=== PATIENT | male | born 1970 | race Caucasian/White ===

== ENCOUNTER 2018-01-15 06:03 | Inpatient (IN) | payer BC ==
[2018-01-15] MEDS ORDERED: KETOROLAC 30 MG/ML 1 ML VIAL IVP STA (06:13)
[2018-01-15] MEDS ORDERED: SODIUM CHLORIDE 0.9% 500 ML IV STA (06:13)
--- NOTE | 2018-01-15 06:19 | ED ---
General Adult HPI - General Source: patient, RN notes reviewed Mode of arrival: wheelchair Limitations: no limitations <Oliverio Hernandez - Last Filed: 01/15/18 06:53> <Oliverio Pulliam - Last Filed: 01/15/18 09:22> - General Chief complaint: Abdominal Pain Stated complaint: Abdominal Pain Time Seen by Provider: 01/15/18 06:05 - History of Present Illness Initial comments: This is a 47-year-old male who presents emergency Department complaining of right upper quadrant pain starting at 10:00 last night and having intermittent episodes of greater pain but never completely going away in between those episodes. Patient states he has not had this before. Patient denies any abdominal surgeries. Patient states she did not take any medication at this time. Patient denies any medical problems. Patient denies any chest pain difficulty breathing shortness of breath per patient denies any recent fever or cough. Patient denies any dysuria hematuria urinary urgency. (Oliverio Hernandez) - Related Data Allergies Allergy/AdvReac Type Severity Reaction Status Date / Time lorazepam [From Ativan] AdvReac Swelling Verified 01/15/18 06:14 prochlorperazine AdvReac Swelling Verified 01/15/18 06:14 [From Compazine] Review of Systems ROS Other: All systems not noted in ROS Statement are negative. <Oliverio Hernandez - Last Filed: 01/15/18 06:53> ROS Other: All systems not noted in ROS Statement are negative. <Oliverio Pulliam - Last Filed: 01/15/18 09:22> ROS Statement: Those systems with pertinent positive or pertinent negative responses have been documented in the HPI. Past Medical History Past Medical History: GERD/Reflux Additional Past Medical History / Comment(s): nerve damage of the neck. History of Any Multi-Drug Resistant Organisms: None Reported Past Surgical History: No Surgical Hx Reported Past Psychological History: No Psychological Hx Reported Smoking Status: Never smoker Past Alcohol Use History: Occasional Past Drug Use History: None Reported <Oliverio Hernandez - Last Filed: 01/15/18 06:53> General Exam Limitations: no limitations <Oliverio Hernandez - Last Filed: 01/15/18 06:53> General appearance: alert, in no apparent distress Head exam: Present: atraumatic, normocephalic, normal inspection Eye exam: Present: normal appearance, PERRL, EOMI. Absent: scleral icterus, conjunctival injection, periorbital swelling ENT exam: Present: normal exam, mucous membranes moist Neck exam: Present: normal inspection. Absent: tenderness, meningismus, lymphadenopathy Respiratory exam: Present: normal lung sounds bilaterally. Absent: respiratory distress, wheezes, rales, rhonchi, stridor Cardiovascular Exam: Present: regular rate, normal rhythm, normal heart sounds. Absent: systolic murmur, diastolic murmur, rubs, gallop, clicks GI/Abdominal exam: Present: soft, normal bowel sounds. Absent: distended, tenderness, guarding, rebound, rigid Extremities exam: Present: normal inspection, full ROM, normal capillary refill. Absent: tenderness, pedal edema, joint swelling, calf tenderness Back exam: Present: normal inspection Neurological exam: Present: alert, oriented X3, CN II-XII intact Psychiatric exam: Present: normal affect, normal mood Skin exam: Present: warm, dry, intact, normal color. Absent: rash <Oliverio Pulliam - Last Filed: 01/15/18 09:22> - General Exam Comments Initial Comments: GENERAL: Patient is well-developed and well-nourished. Patient is nontoxic and well- hydrated and is in moderate distress. ENT: Neck is soft and supple. No significant lymphadenopathy is noted. Oropharynx is clear. Moist mucous membranes. Neck has full range of motion without eliciting any pain. EYES: The sclera were anicteric and conjunctiva were pink and moist. Extraocular movements were intact and pupils were equal round and reactive to light. Eyelids were unremarkable. PULMONARY: Unlabored respirations. Good breath sounds bilaterally. No audible rales rhonchi or wheezing was noted. CARDIOVASCULAR: There is a regular rate and rhythm without any murmurs gallops or rubs. ABDOMEN: Patient has significant right upper quadrant tenderness. SKIN: Skin is clear with no lesions or rashes and otherwise unremarkable. NEUROLOGIC: Patient is alert and oriented x3. Cranial nerves II through XII are grossly intact. Motor and sensory are also intact. Normal speech, volume and content. Symmetrical smile. MUSCULOSKELETAL: Normal extremities with adequate strength and full range of motion. LYMPHATICS: No significant lymphadenopathy is noted PSYCHIATRIC: Normal psychiatric evaluation. (Oliverio Hernandez) Course <Oliverio Hernandez - Last Filed: 01/15/18 06:53> <Oliverio Pulliam - Last Filed: 01/15/18 09:22> Vital Signs 01/15/18 01/15/18 06:05 07:52 Temperature 97.2 F L Pulse Rate 92 81 Respiratory 16 16 Rate Blood Pressure 147/82 140/76 O2 Sat by Pulse 99 98 Oximetry - Reevaluation(s) Reevaluation #1: 01/15/18 09:22 Patient is improved pain control at this time (Oliverio Pulliam) Medical Decision Making - Lab Data Result diagrams: 01/15/18 06:23 01/15/18 06:23 <Oliverio Hernandez - Last Filed: 01/15/18 06:53> - Lab Data Result diagrams: 01/15/18 06:23 01/15/18 06:23 - Radiology Data Radiology results: report reviewed (Ultrasound positive for gallbladder sludge sonographic Washburn's), image reviewed <Oliverio Pulliam - Last Filed: 01/15/18 09:22> - Medical Decision Making EKG shows normal sinus rhythm at 75 bpm UT interval is on a 46 QRS is 80 QT interval 370 QTC is 422. Patient's EKG shows no ST segment elevation or depression or T wave abnormalities are noted. Dr. Pulliam will be taking over the care of this patient at 7 AM (Oliverio Hernandez) 47 male the ER for evaluation of right upper quadrant abdominal pain, severe, positive Washburn's, ultrasound positive for sludge in the gallbladder, likely cholecystitis (Oliverio Pulliam) - Lab Data Lab Results 01/15/18 01/15/18 01/15/18 Range/Units 06:23 06:23 06:23 WBC 8.2 (3.8-10.6) k/uL RBC 5.35 (4.30-5.90) m/uL Hgb 16.1 (13.0-17.5) gm/dL Hct 44.9 (39.0-53.0) % MCV 84.0 (80.0-100.0) fL MCH 30.0 (25.0-35.0) pg MCHC 35.8 (31.0-37.0) g/dL RDW 12.9 (11.5-15.5) % Plt Count 267 (150-450) k/uL Neutrophils % 83 % Lymphocytes % 11 % Monocytes % 4 % Eosinophils % 1 % Basophils % 0 % Neutrophils # 6.8 (1.3-7.7) k/uL Lymphocytes # 0.9 L (1.0-4.8) k/uL Monocytes # 0.4 (0-1.0) k/uL Eosinophils # 0.0 (0-0.7) k/uL Basophils # 0.0 (0-0.2) k/uL Sodium 139 (137-145) mmol/L Potassium 4.1 (3.5-5.1) mmol/L Chloride 101 (98-107) mmol/L Carbon Dioxide 28 (22-30) mmol/L Anion Gap 10 mmol/L BUN 10 (9-20) mg/dL Creatinine 0.90 (0.66-1.25) mg/dL Est GFR (MDRD) Af Amer >60 (>60 ml/min/1.73 sqM) Est GFR (MDRD) Non-Af >60 (>60 ml/min/1.73 sqM) Glucose 118 H (74-99) mg/dL Calcium 9.6 (8.4-10.2) mg/dL Total Bilirubin 2.6 H (0.2-1.3) mg/dL AST 404 H (17-59) U/L ALT 316 H (21-72) U/L Alkaline Phosphatase 108 (38-126) U/L Total Protein 7.8 (6.3-8.2) g/dL Albumin 4.5 (3.5-5.0) g/dL Amylase 58 (30-110) U/L Lipase 120 (23-300) U/L Urine Color Yellow Urine Appearance Clear (Clear) Urine pH 6.0 (5.0-8.0) Ur Specific Garner 1.016 (1.001-1.035) Urine Protein Negative (Negative) Urine Glucose (UA) Negative (Negative) Urine Ketones Negative (Negative) Urine Blood Negative (Negative) Urine Nitrite Negative (Negative) Urine Bilirubin 1+ H (Negative) Urine Urobilinogen <2.0 (<2.0) mg/dL Ur Leukocyte Esterase Negative (Negative) Disposition <Oliverio Hernandez Last Filed: 01/15/18 06:53> <Oliverio Pulliam - Last Filed: 01/15/18 09:22> Clinical Impression: Acute cholecystitis, Abdominal pain Disposition: ADMITTED IP TO THIS HOSP Condition: Good Instructions: Abdominal Pain (ED) Referrals: Yamel Salazar MD [Primary Care Provider] - 1-2 days
[2018-01-15 06:39] LABS: Basophils % (A) 0 %; Eosinophils % (A) 1 %; HCT 44.9 % (39.0-53.0); HGB 16.1 gm/dL (13.0-17.5); Lymphocytes # (A) 0.9 k/uL (1.0-4.8); Lymphocytes % (A) 11 %; MCHC 35.8 g/dL (31.0-37.0); Mean Platelet Volume 7.1; Monocytes # (A) 0.4 k/uL (0-1.0); Monocytes % (A) 4 %; Neutrophils # (A) 6.8 k/uL (1.3-7.7); Neutrophils % (A) 83 %; Platelet Count 267 k/uL (150-450); RBC 5.35 m/uL (4.30-5.90); RDW 12.9 % (11.5-15.5); WBC 8.2 k/uL (3.8-10.6)
[2018-01-15 06:40] LABS: Appearance,Urine Clear (Clear); Bilirubin,Urine 1+ (Negative); Blood,Urine Negative (Negative); Color,Urine Yellow; Glucose,Urine (UA) Negative (Negative); Ketones,Urine Negative (Negative); Leukocyte Esterase,Urine Negative (Negative); Protein,Urine Negative (Negative); Specific Gravity,Urine 1.016 (1.001-1.035); Urobilinogen,Urine <2.0 mg/dL (<2.0)
[2018-01-15 06:43] LABS: ALT 316 U/L (21-72); AST 404 U/L (17-59); Albumin 4.5 g/dL (3.5-5.0); Alkaline Phosphatase 108 U/L (38-126); Amylase 58 U/L (30-110); Anion Gap 10 mmol/L; Blood Urea Nitrogen 10 mg/dL (9-20); Calcium 9.6 mg/dL (8.4-10.2); Carbon Dioxide 28 mmol/L (22-30); Chloride 101 mmol/L (98-107); Glucose 118 mg/dL (74-99); Lipase 120 U/L (23-300); Potassium 4.1 mmol/L (3.5-5.1); Sodium 139 mmol/L (137-145); Total Bilirubin 2.6 mg/dL (0.2-1.3); Total Protein 7.8 g/dL (6.3-8.2)
--- NOTE | 2018-01-15 07:35 | XR ---
EXAM: XR Abdomen, 1 View CLINICAL HISTORY: abdominal pain TECHNIQUE: Frontal supine view of the abdomen/pelvis. COMPARISON: No relevant prior studies available. FINDINGS: Gastrointestinal tract: Unremarkable. No dilation. Bones/joints: Unremarkable. IMPRESSION: Normal abdominal x-ray.
--- NOTE | 2018-01-15 07:39 | US ---
EXAMINATION TYPE: US gallbladder DATE OF EXAM: 01/15/2018 COMPARISON: NONE CLINICAL HISTORY: Pain. EXAM MEASUREMENTS: Liver Length: 14.8 cm Gallbladder Wall: 0.2 cm CBD: 0.7 cm Right Kidney: 11.2 x 4.9 x 5.5 cm Patient of large body habitus with midline bowel gas. Pancreas: mostly obscured by bowel gas, limited portions visualized appears wnl Liver: Increased attenuation Gallbladder: dependant sludge Evidence for sonographic Washburn's sign: patient tender here CBD: slight dilation Right Kidney: No hydronephrosis or masses seen IMPRESSION: Nonspecific gallbladder findings including biliary sludge occupying 15% of the gallbladder lumen depe ndently and sonographic Washburn signs reported at the time of imaging. However there is no gallbladder wall thickening or cholelithiasis to confirm cholecystitis sonographically, and no dilation of the e xtra hepatic biliary tree.
[2018-01-15] MEDS ORDERED: AMPICILLIN-SULBACTAM 3 GM in SODIUM CHLORIDE 0.9% 100 ML IVPB STA (09:19)
[2018-01-15] MEDS ORDERED: ONDANSETRON 4 MG/2 ML VIAL IVP STA (09:22)
[2018-01-15] MEDS ORDERED: MORPHINE SULFATE 4 MG/ML SYRINGE IVP STA (09:22)
[2018-01-15] MEDS: SODIUM CHLORIDE 0.9% 1,000 ML IV ONE ×2 (09:57→10:35)
[2018-01-15 11:05] VITALS: BMI 33.7
--- NOTE | 2018-01-15 12:50 | P.GSCN ---
History of Present Illness Consult date: 01/15/18 Reason for Consult: Abdominal pain History of present illness: Patient is a 47-year-old white male who presented to the hospital with a complaint of midepigastric gastric abdominal discomfort. He states that he has had discomfort like this for approximately a year and had a CAT scan done in the past and was told this was negative. This time the pain became more persistent and spread to the right upper quadrant. The patient was seen in the emergency room where an ultrasound of the gallbladder was performed and the patient was noted to have sludge in his gallbladder. The patient had not eaten anything unusual or greasy or spicy. He did say that he had eaten donuts. The patient denied any nausea or vomiting. He denied any fever or chills. His total bilirubin is elevated at 2.6 and AST and ALT are elevated at 02/17/2016. Alkaline phosphatase is normal at 108 and amylase and lipase are normal. Past surgical history: Negative Past medical history: Anxiety ALLERGIES: Ativan and Compazine Social history: Smoking: Negative alcohol: Negative Review of systems: HEENT: Negative Lungs: Negative Heart: Negative GI: As above possible peptic ulcer disease : Negative Review of Systems - Constitutional Reports as per HPI - Cardiovascular Reports as per HPI - Respiratory Reports as per HPI - Gastrointestinal Reports as per HPI, Reports abdominal pain - Genitourinary Reports as per HPI - Psychiatric Reports anxiety Past Medical History Past Medical History: GERD/Reflux Additional Past Medical History / Comment(s): nerve damage of the neck. History of Any Multi-Drug Resistant Organisms: None Reported Past Surgical History: No Surgical Hx Reported Past Anesthesia/Blood Transfusion Reactions: No Reported Reaction Past Psychological History: No Psychological Hx Reported Smoking Status: Never smoker Past Alcohol Use History: Occasional Past Drug Use History: None Reported - Past Family History Father Family Medical History: Hyperlipidemia, Hypertension, Myocardial Infarction ([place]) Mother History Unknown: Yes Medications and Allergies Home Medications Medication Instructions Recorded Confirmed Type Omeprazole 20 mg PO Q48H PRN 01/15/18 01/15/18 History Allergies Allergy/AdvReac Type Severity Reaction Status Date / Time lorazepam [From Ativan] AdvReac Swelling Verified 01/15/18 12:12 prochlorperazine AdvReac Swelling Verified 01/15/18 12:12 [From Compazine] Surgical - Exam Vital Signs Temp Pulse Resp BP Pulse Ox 97.2 F L 92 16 147/82 99 01/15/18 06:05 01/15/18 06:05 01/15/18 06:05 01/15/18 06:05 01/15/18 06:05 - General well developed, no distress, obese - Eyes normal ocular movement - ENT normal pinna, normal nares, no hearing loss - Neck no masses, trachea midline, no lymphadectomy, no venous distension - Respiratory normal expansion, normal respiratory effort, clear to auscultation - Cardiovascular Rhythm: regular Heart Sounds: normal: S1, S2 - Abdomen Nontender at this time with no guarding or rebound Abdomen: soft, bowel sounds - Integumentary no rash - Psychiatric oriented to time, oriented to person, oriented to place, speech is normal Results - Labs 01/15/18 06:23 01/15/18 06:23 Abnormal Lab Results - Last 24 Hours (Table) 01/15/18 01/15/18 01/15/18 Range/Units 06:23 06:23 06:23 Lymphocytes # 0.9 L (1.0-4.8) k/uL Glucose 118 H (74-99) mg/dL Total Bilirubin 2.6 H (0.2-1.3) mg/dL AST 404 H (17-59) U/L ALT 316 H (21-72) U/L Urine Bilirubin 1+ H (Negative) Diabetes panel 01/15/18 Range/Units 06:23 Sodium 139 (137-145) mmol/L Potassium 4.1 (3.5-5.1) mmol/L Chloride 101 (98-107) mmol/L Carbon Dioxide 28 (22-30) mmol/L BUN 10 (9-20) mg/dL Creatinine 0.90 (0.66-1.25) mg/dL Glucose 118 H (74-99) mg/dL Calcium 9.6 (8.4-10.2) mg/dL AST 404 H (17-59) U/L ALT 316 H (21-72) U/L Alkaline Phosphatase 108 (38-126) U/L Total Protein 7.8 (6.3-8.2) g/dL Albumin 4.5 (3.5-5.0) g/dL Calcium panel 01/15/18 Range/Units 06:23 Calcium 9.6 (8.4-10.2) mg/dL Albumin 4.5 (3.5-5.0) g/dL Pituitary panel 01/15/18 Range/Units 06:23 Sodium 139 (137-145) mmol/L Potassium 4.1 (3.5-5.1) mmol/L Chloride 101 (98-107) mmol/L Carbon Dioxide 28 (22-30) mmol/L BUN 10 (9-20) mg/dL Creatinine 0.90 (0.66-1.25) mg/dL Glucose 118 H (74-99) mg/dL Calcium 9.6 (8.4-10.2) mg/dL Adrenal panel 01/15/18 Range/Units 06:23 Sodium 139 (137-145) mmol/L Potassium 4.1 (3.5-5.1) mmol/L Chloride 101 (98-107) mmol/L Carbon Dioxide 28 (22-30) mmol/L BUN 10 (9-20) mg/dL Creatinine 0.90 (0.66-1.25) mg/dL Glucose 118 H (74-99) mg/dL Calcium 9.6 (8.4-10.2) mg/dL Total Bilirubin 2.6 H (0.2-1.3) mg/dL AST 404 H (17-59) U/L ALT 316 H (21-72) U/L Alkaline Phosphatase 108 (38-126) U/L Total Protein 7.8 (6.3-8.2) g/dL Albumin 4.5 (3.5-5.0) g/dL - Imaging US - abdomen: report reviewed, image reviewed (Sludge noted in the gallbladder Bilirubin elevated at 2.6 AST 404 ALT 316) Assessment and Plan Assessment: Impression/plan: 1. 47-year-old white male with probable biliary colic 2. Elevated bilirubin will obtain GI consult consider ERCP 3. Probable laparoscopic possible open cholecystectomy in near future 4. Hypertension by history
[2018-01-15] MEDS: AMPICILLIN-SULBACTAM 3 GM in SODIUM CHLORIDE 0.9% 100 ML IVPB SCH ×2 (17:32→23:53)
[2018-01-16] MEDS: AMPICILLIN-SULBACTAM 3 GM in SODIUM CHLORIDE 0.9% 100 ML IVPB SCH ×4 (06:18→23:59)
[2018-01-16 07:42] LABS: Albumin 3.7 g/dL (3.5-5.0); Bilirubin, Conjugated 2.6 mg/dL (0.0-0.3); Bilirubin, Delta 1.4 mg/dL (0.0-0.2); Bilirubin,Unconjugated 1.1 mg/dL (0.0-1.1); Total Bilirubin 5.1 mg/dL (0.2-1.3); Total Protein 6.6 g/dL (6.3-8.2)
--- NOTE | 2018-01-16 08:32 | P.CONS ---
History of Present Illness - Reason for Consult Consult date: 01/15/18 Possible common bile duct stone - History of Present Illness The patient is a 47-year-old male who presented with epigastric and right upper quadrant pain and was found to have elevated liver enzymes and sludge in his gallbladder. Were asked to see him for possible common bile duct stone. The patient had 2 similar episodes 1 month ago and one month prior to that. He indicated that 1 year ago he had issues with reflux and heartburn and a CT of the abdomen performed at that time showed no abnormality in the gallbladder. The patient denied fever, chills or any alcohol consumption. Review of Systems Constitutional: Denies fever, chills, sweats, weight gain, or loss. HEENT: Negative for migraines, blurred vision or loss, earaches, drainage, tinnitus, oral mucosal lesions, dysphagia, or odynophagia. Cardiac: Negative for chest pain, arrhythmias, or palpitation. Respiratory: Negative for shortness of breath, hemoptysis, cough, or sputum production. Gastrointestinal: See HPI for pertinent findings. Genitourinary: Negative for hematuria, urgency, frequency, polyuria, dysuria. Musculoskeletal: Negative for muscle aches, swelling, arthritis, and arthralgias. Neurologic: Negative for stroke or TIA. Endocrine: Negative for thyroid problems. Skin: Negative for rash or itching. Psychiatric: Negative history for depression and anxiety Past Medical History Past Medical History: GERD/Reflux Additional Past Medical History / Comment(s): nerve damage of the neck. History of Any Multi-Drug Resistant Organisms: None Reported Past Surgical History: No Surgical Hx Reported Past Anesthesia/Blood Transfusion Reactions: No Reported Reaction Past Psychological History: No Psychological Hx Reported Smoking Status: Never smoker Past Alcohol Use History: Occasional Past Drug Use History: None Reported - Past Family History Father Family Medical History: Hyperlipidemia, Hypertension, Myocardial Infarction ([place]) Mother History Unknown: Yes Medications and Allergies Home Medications Medication Instructions Recorded Confirmed Type Omeprazole 20 mg PO Q48H PRN 01/15/18 01/15/18 History Allergies Allergy/AdvReac Type Severity Reaction Status Date / Time lorazepam [From Ativan] AdvReac Swelling Verified 01/15/18 12:12 prochlorperazine AdvReac Swelling Verified 01/15/18 12:12 [From Compazine] Physical Exam Vitals: Vital Signs Temp Pulse Pulse Resp BP BP Pulse Ox 03/03/18 16:00 98.3 F 61 16 119/71 97 01/15/18 10:09 98.3 F 73 16 123/63 98 01/15/18 10:01 98.3 F 70 16 128/61 95 01/15/18 07:52 81 16 140/76 98 01/15/18 06:05 97.2 F L 92 16 147/82 99 Intake and Output 01/15/18 01/15/18 01/15/18 06:59 14:59 22:59 Other: Voiding Method Toilet Toilet # Voids 1 Weight 99.79 kg 103.8 kg Patient Weight 01/16/18 06:59 Weight 103.8 kg General appearance: The patient is alert, oriented, in no acute distress. HET: Head is normocephalic and atraumatic. Pupils are equal and reactive. Oropharynx is clear without lesions. Neck: Supple without lymphadenopathy. Trachea midline. Heart: S1 S2. Regular rate and rhythm. Lungs: No crackles or wheezes are heard. Abdomen: Soft, nondistended with bowel sounds. No peritoneal signs. No palpable organomegaly or masses. Extremities: Normal skin color and turgor. No cyanosis, rash, ulceration, clubbing, or edema. Radial and pedal pulses are 2/4 bilaterally. Neurological: No focal deficits. Strength and sensation are grossly intact. Results CBC & Chem 7: 01/15/18 06:23 01/15/18 06:23 Labs: Abnormal Lab Results - Last 24 Hours (Table) 01/15/18 01/15/18 01/15/18 Range/Units 06:23 06:23 06:23 Lymphocytes # 0.9 L (1.0-4.8) k/uL Glucose 118 H (74-99) mg/dL Total Bilirubin 2.6 H (0.2-1.3) mg/dL AST 404 H (17-59) U/L ALT 316 H (21-72) U/L Urine Bilirubin 1+ H (Negative) Assessment and Plan Assessment: Suspected biliary colic. With his elevated liver enzyme, will consider the possibility of common bile duct stone which couldn't have passed. Plan: I agree with your current management. Will monitor his course and liver enzymes closely. If his enzymes do not improve totally or if his pain recurs, I would consider an ERCP. I will follow with you with interest.
--- NOTE | 2018-01-16 09:51 | P.PN ---
Subjective Progress Note Date: 01/16/18 Patient is a 47-year-old white male admitted with suspected biliary colic and elevated bilirubin to 2.6. He was seen in consultation by Dr. Burden and his liver enzymes were repeated this morning. His bilirubin this morning has increased to 5.1. Patient's alkaline phosphatase is 163. The patient has no abdominal pain this morning. Objective - Vital Signs Vital signs: Vital Signs Temp 98.1 F 01/16/18 07:00 Pulse 69 01/16/18 07:00 Resp 18 01/16/18 07:00 BP 117/68 01/16/18 07:00 Pulse Ox 96 01/16/18 07:00 Intake & Output 01/15/18 01/16/18 01/16/18 18:59 06:59 18:59 Intake Total 1000 Balance 1000 Weight 103.8 kg Intake: IV 1000 Ampicillin-Sulbactam 3 gm 100 In Sodium Chloride 0.9% 100 ml @ 100 mls/hr IVPB ONCE STA Rx#:[id number] Sodium Chloride 0.9% 1, 900 000 ml @ 100 mls/hr IV . Q10H ONE Rx#:[id number] Other: Voiding Method Toilet Toilet # Voids 1 - Constitutional General appearance: Present: obese - Respiratory Respiratory: bilateral: CTA - Cardiovascular Rhythm: regular Heart sounds: normal: S1, S2 - Gastrointestinal General gastrointestinal: Present: normal bowel sounds, soft - Psychiatric Psychiatric: Present: A&O x's 3, appropriate affect, intact judgment & insight - Labs CBC & Chem 7: 01/15/18 06:23 01/15/18 06:23 Labs: Abnormal Lab Results - Last 24 Hours (Table) 01/16/18 Range/Units 06:50 Total Bilirubin 5.1 H (0.2-1.3) mg/dL Conjugated Bilirubin 2.6 H (0.0-0.3) mg/dL Delta Bilirubin 1.4 H (0.0-0.2) mg/dL AST 379 H (17-59) U/L ALT 545 H (21-72) U/L Alkaline Phosphatase 163 H (38-126) U/L Assessment and Plan Assessment: Impression/plan: 1. 47-year-old white male with probable biliary colic 2. Elevated bilirubin will obtain GI consult consider ERCP, bilirubin increased to 5.1 3. Probable laparoscopic possible open cholecystectomy in near future 4. Hypertension by history Plan: 1. Await GI recommendation as per need for ERCP
[2018-01-16] MEDS: SODIUM CHLORIDE 0.9% 1,000 ML IV ONE (12:49)
[2018-01-16] MEDS ORDERED: INDOMETHACIN 50MG SUPPOSITORY RECTAL ONE (14:00)
[2018-01-16] MEDS ORDERED: GLYCOPYRROLATE 0.2 MG/ML 2 ML VIAL ONE (15:54)
[2018-01-16] MEDS ORDERED: PROPOFOL 10 MG/ML 20 ML VIAL IV ONE (15:54)
[2018-01-16] MEDS ORDERED: LIDOCAINE 1% INJ 10MG/ML (20 ML MDV) ONE (15:54)
[2018-01-16] MEDS ORDERED: fentaNYL (PF) 50 MCG/ML 2 ML AMP ONE (15:54)
[2018-01-16] MEDS ORDERED: IV FLUID CONTINUATION 800 ML IV ONE (16:05)
[2018-01-16] MEDS ORDERED: IOHEXOL 300 MG/ML 50 ML BOTTLE MISCELLANE ONE (16:20)
--- NOTE | 2018-01-16 16:52 | P.PCN ---
Date of Procedure: 01/16/18 Procedure(s) Performed: Procedure: Endoscopic retrograde cholangiopancreatography with sphincterotomy and passing the 8.5 mm balloon catheter across the sphincterotomy site fully inflated. Preoperative diagnosis: Biliary colic and abnormal liver enzymes with rising bilirubin and sludge in the gallbladder, R/O common bile duct stone. Postoperative diagnosis: Normal pancreatic duct. Small filling defects in the distal common bile duct consistent with common bile duct stone(s). S/P sphincterectomy with passing of the 8.5 mm balloon catheter across the sphincterotomy site fully inflated. Preparation sedation: Was provided by anesthesia. Brief clinical history: The patient is a 47-year-old male who presented with epigastric and right upper quadrant pain and was found to have elevated liver enzymes and sludge in his gallbladder. Were asked to see him for possible common bile duct stone. The patient had 2 similar episodes 1 month ago and one month prior to that. He indicated that 1 year ago he had issues with reflux and heartburn and a CT of the abdomen performed at that time showed no abnormality in the gallbladder. The patient denied fever, chills or any alcohol consumption. Procedure: With the patient in the prone position and after informed consent and adequate sedation, I passed the Olympus video duodenoscope down the esophagus into the stomach then passed it through the pylorus into the duodenum and brought the papilla into view. The papilla appeared normal. Initial cannulation and injection with dye resulted in opacification of the pancreatic duct which appeared within normal limits. Subsequently, I was able to selectively cannulate the common bile duct and visualize the biliary tree. The cystic duct appears to be patent and dye was withdrawn into the gallbladder. The common bile duct was slightly dilated and there were couple filling defects distally raising the possibility of retained common bile duct stones. I therefore proceeded to exchange the catheter 40 sphincterotome over the guidewire and after I performed adequate sphincterotomy, I passed the 8.5 mm balloon catheter to the proximal common bile duct and inflated it and withdrew it across the sphincterotomy site fully inflated. I did not see any stones, heart in this semi-blind maneuver. The patient tolerated the procedure well and did not seem to have any immediate complications. Plan: The patient was reassured. Will allow clear liquid diet and review his labs tomorrow and make further plans based on his course. I'll discuss with you and follow with you with interest.
[2018-01-16] MEDS: BENZOCAINE/MENTHOL LOZENG 1 EACH LOZENGE MUCOUS MEM PRN (22:43)
[2018-01-17] MEDS: BENZOCAINE/MENTHOL LOZENG 1 EACH LOZENGE MUCOUS MEM PRN ×2 (03:20→10:59)
[2018-01-17] MEDS: AMPICILLIN-SULBACTAM 3 GM in SODIUM CHLORIDE 0.9% 100 ML IVPB SCH ×2 (05:44→12:16)
--- NOTE | 2018-01-17 07:18 | FL ---
EXAMINATION TYPE: FL ERCP biliary duct only DATE OF EXAM: 01/16/2018 CLINICAL HISTORY: Common bile duct stone TECHNIQUE: Fluoroscopy. COMPARISON: None. FINDINGS: Fluoroscopic guidance was provided during ERCP procedure performed by Dr. Galvan. A total o f 121 seconds of fluoroscopic time was utilized during the procedure and one spot images was acquired . Single image acquired shows opacification of common bile duct. Please refer to procedure note for f urther details. IMPRESSION: As Above.
[2018-01-17 07:58] VITALS: BP 121/76; PULSE 74; RESP 18; TEMP 98.7
[2018-01-17 09:29] LABS: ALT 349 U/L (21-72); AST 107 U/L (17-59); Albumin 3.6 g/dL (3.5-5.0); Alkaline Phosphatase 151 U/L (38-126); Anion Gap 9 mmol/L; Blood Urea Nitrogen 10 mg/dL (9-20); Calcium 8.7 mg/dL (8.4-10.2); Carbon Dioxide 26 mmol/L (22-30); Chloride 105 mmol/L (98-107); Glucose 140 mg/dL (74-99); Potassium 4.2 mmol/L (3.5-5.1); Sodium 140 mmol/L (137-145); Total Bilirubin 1.2 mg/dL (0.2-1.3); Total Protein 6.5 g/dL (6.3-8.2)
--- NOTE | 2018-01-17 10:47 | P.PN ---
Subjective Progress Note Date: 01/17/18 47-year-old male seen and examined at bedside. Patient states after having the procedure done yesterday the abdominal pain has resolved. Patient states he's hungry. Denies nausea vomiting. 47-year-old male who initially presented with epigastric and right upper quadrant pain was found to have elevated liver enzymes and sludge in the gallbladder. Patient underwent an ERCP yesterday with sphincterotomy Objective - Vital Signs Vital signs: Vital Signs Temp 98.7 F 01/17/18 07:57 Pulse 74 01/17/18 07:57 Resp 18 01/17/18 07:57 BP 121/76 01/17/18 07:57 Pulse Ox 97 01/17/18 07:57 Intake & Output 01/16/18 01/17/18 01/17/18 18:59 06:59 18:59 Intake Total 420 1645 Balance 420 1645 Intake: IV 300 Intake, IV Titration 800 Amount Ampicillin-Sulbactam 3 gm 800 In Sodium Chloride 0.9% 100 ml @ 100 mls/hr IVPB Q6HR [facility] Rx#:[id number] Oral 120 845 Other: Voiding Method Toilet Toilet Toilet # Voids 3 2 - Exam Physical exam Abdomen obese soft nontender no facial grimacing with palpitation to the abdominal wall bowel tones present reports no nausea vomiting states abdominal pain has resolved - Labs CBC & Chem 7: 01/15/18 06:23 01/17/18 08:47 Labs: Abnormal Lab Results - Last 24 Hours (Table) 01/17/18 Range/Units 08:47 Glucose 140 H (74-99) mg/dL AST 107 H (17-59) U/L ALT 349 H (21-72) U/L Alkaline Phosphatase 151 H (38-126) U/L Assessment and Plan Assessment: Impression Present on admission epigastric right upper quadrant pain with elevated liver enzymes, elevated bilirubin and sludge in the gallbladder Biliary colic present on admission likely do to common bile duct stones ERCP Small filling defects in the distal common bile duct consistent with common bile duct stone status post sphincterectomy done on January 16 Obesity BMI 33 Plan Diet will be initiated monitor the response Home meds as appropriate Further surgical recommendations pending DVT and GI prophylaxis IV fluid for hydration IV Unasyn as ordered The above impression and plan of care have been discussed and directed by signing physician. Nasra Owens nurse practitioner acting as scribe for signing physician.
--- NOTE | 2018-01-17 12:38 | P.DS ---
Providers Date of admission: 01/16/18 12:14 Expected date of discharge: 01/17/18 Attending physician: Cristiano Morales Consults: 01/15/18 12:50 Consult Physician Routine Consulting Provider: Wayne Galvan Consult Reason/Comments: possible ERCP elevated biliruben sludge in gallbldder Do you want consulting provider notified?: Yes Primary care physician: Yamel Salazar [facility] Course: 47-year-old male presented on the day of admission to the emergency room with chief complaint of developing right upper quadrant pain radiating into the epigastric area. Patient stated the pain was persistent. Patient stated that he did eat some doughnuts after eating the donuts developed the pain. In the emergency room an ultrasound the gallbladder was performed showed sludge in the gallbladder. It was noted that the patient did have elevated liver enzymes. A gastroenterology consultation obtained. for possible common bile duct stone. Patient had had 2 similar episodes of epigastric pain one month ago and one month prior to that. He states that a year ago he did have a CAT scan of his abdomen at that time it did not show anything abnormal in the gallbladder. Patient did undergo an ERCP with sphincterotomy on January 16. It showed normal pancreatic duct. Small filling defects in the distal common bile duct consistent with common bile duct stone. Postprocedure patient stated that the pain in his abdomen had resolved was tolerating a diet was anxious to be discharged home with the plan patient would see the surgeon dr morales this week in the office to discuss the timing for the patient to undergo a laparoscopic cholecystectomy Impression discharge diagnosis Present on admission epigastric right upper quadrant pain with elevated liver enzymes, elevated bilirubin and sludge in the gallbladder Biliary colic present on admission likely do to common bile duct stones ERCP Small filling defects in the distal common bile duct consistent with common bile duct stone status post sphincterectomy done on January 16 Obesity BMI 33 The above impression and plan of care have been discussed and directed by signing physician. Nasra Owens nurse practitioner acting as scribe for signing physician. Patient Condition at Discharge: Good Plan - Discharge Summary Discharge Rx Participant: No New Discharge Prescriptions: Continue Omeprazole 20 mg PO Q48H PRN PRN Reason: gerd Discharge Medication List Omeprazole 20 mg PO Q48H PRN 01/15/18 [History] Follow up Appointment(s)/Referral(s): Yamel Salazar MD [Primary Care Provider] - 1-2 days Cristiano Morales MD [STAFF PHYSICIAN] - 01/20/18 Patient Instructions/Handouts: Cholecystitis (GEN), Abdominal Pain (ED) Activity/Diet/Wound Care/Special Instructions: To maintain a low-fat diet Discharge Disposition: HOME SELF-CARE
== END 2018-01-17 13:15 | disposition home or self-care (01) | DRG 446 ==
LOC: EC 06:03 → 3OBS 09:19 → 5MS5E 19:20 → OBSVTOIN 01-16 12:14
PROVIDERS: ADMIT Surgery; ATTEND Surgery
PROC: 0F798ZZ Dilation of Common Bile Duct, Via Natural or Artificial Opening Endoscopic (ICD-10-PCS; principal; 2018-01-16 16:00)
DX: K80.50 Calculus of bile duct without cholangitis or cholecystitis without obstruction (principal); E66.9 Obesity, unspecified; I10 Essential (primary) hypertension; K21.9 Gastro-esophageal reflux disease without esophagitis; Z68.33 Body mass index [BMI] 33.0-33.9, adult; Z86.59 Personal history of other mental and behavioral disorders; Z88.8 Allergy status to other drugs, medicaments and biological substances
CPT/HCPCS: 36415; 43262; 43264; 74018; 74328; 76705; 80053; 80076; 81003; 82150; 83690; 85025; 93005; 96361; 96374; 96375; 99285

== ENCOUNTER 2018-01-26 10:40 | Day surgery (SDC) | payer BC ==
[2018-01-21 12:27] VITALS: BMI 34.0
[~2018-01-26 10:40] MED LIST: HEPARIN SODIUM,PORCINE 5,000 UNIT/ML 1 ML VIAL SQ ONE; HYDROmorphone 0.5 MG/0.5 ML SYRINGE IVP PRN; LACTATED RINGERS 1,000 ML IV SCH; ONDANSETRON 4 MG/2 ML VIAL IVP PRN; ceFAZolin IN SWFI 2 GM/20 ML SYRINGE IVP ONE
[2018-01-26] MEDS ORDERED: LIDOCAINE 1% 20 ML VIAL (10MG/ML) FOR IV START INTRADERMA ONE (11:55)
[2018-01-26] MEDS ORDERED: MIDAZOLAM 2 MG/2 ML VIAL IV ONE (12:09)
--- NOTE | 2018-01-26 12:26 | P.GSHP ---
History of Present Illness H&P Date: 01/26/18 Chief Complaint: Right upper quadrant pain This is a 47-year-old male who's had right upper quadrant pain. His recent ultrasound shows evidence of cholelithiasis and sludge. He presents today for laparoscopic cholecystectomy.. - Constitutional Constitutional: Reports as per HPI Past Medical History Past Medical History: GERD/Reflux Additional Past Medical History / Comment(s): Hx nerve damage of the neck 10 yrs ago, resolved now. History of Any Multi-Drug Resistant Organisms: None Reported Past Surgical History: No Surgical Hx Reported Additional Past Surgical History / Comment(s): EGD Past Anesthesia/Blood Transfusion Reactions: No Reported Reaction Past Psychological History: Anxiety Smoking Status: Never smoker Past Alcohol Use History: Occasional Past Drug Use History: None Reported - Past Family History Father Family Medical History: Deep Vein Thrombosis (DVT), Hyperlipidemia, Hypertension , Myocardial Infarction ([place]) Mother History Unknown: Yes Medications and Allergies Home Medications Medication Instructions Recorded Confirmed Type Omeprazole 20 mg PO Q48H PRN 01/15/18 01/26/18 History Allergies Allergy/AdvReac Type Severity Reaction Status Date / Time lorazepam [From Ativan] AdvReac Swelling Verified 01/26/18 11:54 prochlorperazine AdvReac Swelling Verified 01/26/18 11:54 [From Compazine] Surgical - Exam Vital Signs Temp Pulse Resp BP Pulse Ox 97.8 F 79 16 138/85 99 01/26/18 11:50 01/26/18 11:50 01/26/18 11:50 01/26/18 11:50 01/26/18 11:50 - General well developed, no distress - Eyes PERRL - ENT normal pinna - Neck no masses - Respiratory normal expansion - Cardiovascular Rhythm: regular - Abdomen Abdomen: soft, non tender Assessment and Plan Assessment: Cholelithiasis. We'll perform laparoscopic cholecystectomy.
[2018-01-26] MEDS ORDERED: NEOSTIGMINE 1 MG/ML 10 ML VIAL ONE (12:44)
[2018-01-26] MEDS ORDERED: GLYCOPYRROLATE 0.2 MG/ML 2 ML VIAL ONE (12:44)
[2018-01-26] MEDS ORDERED: fentaNYL (PF) 50 MCG/ML 2 ML AMP ONE (12:44)
[2018-01-26] MEDS ORDERED: PROPOFOL 10 MG/ML 20 ML VIAL IV ONE (12:44)
[2018-01-26] MEDS ORDERED: SUCCINYLCHOLINE CHLORIDE 100 MG/5 ML SYR IV ONE (12:44)
[2018-01-26] MEDS ORDERED: MIDAZOLAM 2 MG/2 ML VIAL ONE (12:44)
[2018-01-26] MEDS ORDERED: ePHEDrine SULFATE/0.9% NACL/PF 50 MG/5 ML SYRINGE IV ONE (12:44)
[2018-01-26] MEDS ORDERED: LIDOCAINE 1% INJ 10MG/ML (20 ML MDV) ONE (12:44)
[2018-01-26] MEDS ORDERED: ROCURONIUM BROMIDE 10 MG/ML 10 ML VIAL IV ONE (12:44)
[2018-01-26] MEDS ORDERED: BUPIVACAINE (PF) 0.25% 30 ML VIAL SQ ONE (13:04)
--- NOTE | 2018-01-26 13:23 | P.OP ---
Date of Procedure: 01/26/18 Preoperative Diagnosis: Chronic cholecystitis Postoperative Diagnosis: Cholecystitis Procedure(s) Performed: Laparoscopic cholecystectomy Anesthesia: FELICIA Surgeon: Cristiano Darling Estimated Blood Loss (ml): 5 Pathology: other (Gallbladder) Condition: stable Disposition: PACU Description of Procedure: The patient was placed on the operating table. The patient received a general endotracheal tube anesthesia. The patients abdomen was prepped and draped in the usual sterile fashion. Through an infraumbilical stab incision, the fascia of the anterior abdominal wall was grasped with a pair of Kochers and then the Veress needle was placed in the peritoneal cavity. Position of the Veress needle was confirmed with positive drop test. The abdomen was then insufflated. After adequate insufflation, the 10 mm trocar was placed in the peritoneal cavity. Following this the laparoscope was placed in the peritoneal cavity. The patient was placed in the head-up, right side up position and then a 5 mm trocar was placed in the right lateral and right subcostal position under direct visualization. A 8 mm trocar was placed in the epigastric position. The gallbladder was grasped in the fundus and infundibulum. Traction on the gallbladder was placed in the lateral and the cephalad positions. The triangle of Calot was visualized.. The cystic duct was bluntly dissected until the union of the cystic duct and common bile duct was seen. The cystic duct was then divided and sealed with the Harmonic scissors. A PDS Endoloop was then placed throughout the cystic duct stump. The cystic artery divided and sealed with the Harmonic scissors. The gallbladder was then removed from the liver bed using Harmonic scissors. The gallbladder was then extracted through the epigastric port site. Operative field was checked for any bleeding spots and Harmonic scissors was used to coagulate the liver bed. The abdomen was irrigated. The trocars were removed. The skin was closed using interrupted 3-0 Vicryl suture. Dermabond dressing were applied. The patient tolerated the procedure well.
[2018-01-26 13:45] VITALS: TEMP 97
[2018-01-26] MEDS: MORPHINE SULFATE 4 MG/ML SYRINGE IV PRN ×2 (13:45→13:47)
[2018-01-26] MEDS: MEPERIDINE 50 MG/ML SYRINGE IVP ONE ×2 (14:00→14:18)
[2018-01-26] MEDS ORDERED: KETOROLAC 30 MG/ML 1 ML VIAL IVP ONE (14:00)
[2018-01-26 15:43] VITALS: RESP 18
[2018-01-26 16:17] VITALS: BP 102/63; PULSE 60
== END 2018-01-26 17:51 | disposition home or self-care (01) ==
LOC: OR 10:40
PROVIDERS: ATTEND Surgery
DX: K81.2 Acute cholecystitis with chronic cholecystitis (principal); K21.9 Gastro-esophageal reflux disease without esophagitis; F41.9 Anxiety disorder, unspecified; Z88.8 Allergy status to other drugs, medicaments and biological substances; Z82.49 Family history of ischemic heart disease and other diseases of the circulatory system
CPT/HCPCS: 88304; 47562; J2250; J2270; J1644; J2710; J2175; J2405; J2001; J3010; J1885; J0330; J2704; J0690

== ENCOUNTER → 2019-01-10 | Outpatient (CLI) | payer BC ==
--- NOTE | 2019-01-10 11:21 | XR ---
EXAMINATION TYPE: XR chest 2V DATE OF EXAM: 01/10/2019 COMPARISON: NONE HISTORY: Trouble breathing with exertion since Wednesday. TECHNIQUE: Frontal and lateral views of the chest are obtained. FINDINGS: There is no focal air space opacity, pleural effusion, or pneumothorax seen. The cardiac silhouette size is within normal limits. The osseous structures are intact. IMPRESSION: No acute cardiopulmonary process.
== END | disposition home or self-care (01) ==
LOC: RADXRMAIN 11:01
PROVIDERS: ATTEND Family Medicine
DX: R06.09 Other forms of dyspnea (principal)
CPT/HCPCS: 71046

== ENCOUNTER → 2019-01-31 | Outpatient (CLI) | payer BC ==
--- NOTE | 2019-02-01 11:59 | ECHOF ---
Referral Reason:R06.09 Other forms of dyspnea MEASUREMENTS -------- HEIGHT: 175.3 cm WEIGHT: 101.6 kg BP: RVIDd: 3.7 cm (< 3.3) IVSd: 1.2 cm (0.6 - 1.1) LVIDd: 3.3 cm (3.9 - 5.3) LVPWd: 1.5 cm (0.6 - 1.1) IVSs: 1.9 cm LVIDs: 1.6 cm LVPWs: 1.9 cm LAESV Index (A-L): 17.61 ml/m Ao Diam: 3.4 cm (2.0 - 3.7) AV Cusp: 1.6 cm (1.5 - 2.6) LA Diam: 3.2 cm (2.7 - 3.8) EPSS: 0.6 cm MV E Marlon: 0.67 m/s MV DecT: 216 ms MV A Marlon: 0.76 m/s MV E/A Ratio: 0.88 RAP: 5.00 mmHg RVSP: 24.83 mmHg MV EF SLOPE: 82.48 mm/s (70 - 150) MV EXCURSION: 1.35 cm (> 18.000) FINDINGS -------- Sinus rhythm. This was a technically difficult study with suboptimal views. The left ventricular size is normal. There is mild concentric left ventricular hypertrophy. Overa ll left ventricular systolic function is normal with, an EF between 55 - 60 %. The right ventricle is mild to moderately enlarged. The left atrial size is normal. The right atrial size is normal. XX ml of Lumason was utilized for enhancement of images. The aortic valve is trileaflet and appears structurally normal. There is trace mitral regurgitation. Trace tricuspid regurgitation present. The right ventricular systolic pressure, as measured by Dopp ler, is 24.83mmHg. There is no pulmonic regurgitation present. The aortic root size is normal. There is no pericardial effusion. CONCLUSIONS -------- 1. Sinus rhythm. 2. This was a technically difficult study with suboptimal views. 3. The left ventricular size is normal. 4. There is mild concentric left ventricular hypertrophy. 5. Overall left ventricular systolic function is normal with, an EF between 55 - 60 %. 6. The right ventricle is mild to moderately enlarged. 7. The left atrial size is normal. 8. The right atrial size is normal. 9. XX ml of Lumason was utilized for enhancement of images. 10. The aortic valve is trileaflet and appears structurally normal. 11. There is trace mitral regurgitation. 12. Trace tricuspid regurgitation present. 13. The right ventricular systolic pressure, as measured by Doppler, is 24.83mmHg. 14. There is no pulmonic regurgitation present. 15. The aortic root size is normal. 16. There is no pericardial effusion. MECHANICAL DEVELOPMENT ENGINEER: Ariela Rivera RDCS
--- NOTE | 2019-02-08 14:15 | EST ---
EXERCISE STRESS AGE: 49 SEX: M HT: 5'9" WT: 224 PROTOCOL: Migue Treadmill Stress Test STAGE: 2 DURATION OF EXERCISE: 6:00 HEART RATE REST: 71 BLOOD PRESSURE REST: 96/64 MAXIMUM HEART RATE ACHIEVED: 150 MAXIMUM BLOOD PRESSURE: 160/88 85% MPHR: 147 100% MPHR: 173 METS: 7.3 INDICATIONS: Dyspnea CLINICAL INFORMATION: Patient was exercised for a total period of 6 minutes, peak heart rate of 150 was achieved. Maximum blood pressure of 160/88 mmHg was noted. Resting EKG shows normal sinus rhythm with normal [place] interval and QRS duration and normal ST-T waves. No ST- segment depression suggestive of ischemia was noted. Patient did not complain of any chest pain during the test. Occasional PVCs were noted. FINAL IMPRESSION: 1. This exercise test is not suggestive of ischemia. 2. Patient's exercise tolerance is normal. 3. Patient did not complain of any chest pain during the test. MMODL / IJN: [id number] /
== END | disposition home or self-care (01) ==
LOC: RADNMMAIN 10:25
PROVIDERS: ATTEND Family Medicine
DX: I51.7 Cardiomegaly (principal)
CPT/HCPCS: 93017; 93306; Q9950

== ENCOUNTER → 2020-09-04 | Outpatient (CLI) | payer BC ==
[2020-09-04 22:54] LABS: Total Protein,CSF 40 mg/dL (12-60)
[2020-09-04 23:15] LABS: Appearance,CSF Clear; CSF Tube Number 3; CSF Tube Volume 3.5; Nucleated Cells, CSF 3 u/L (0-5); Red Blood Cell,CSF 1 u/L (0-10)
== END | disposition home or self-care (01) ==
LOC: LABWHC1 08:12
PROVIDERS: ATTEND Nurse Practitioner Family
DX: G35 Multiple sclerosis (principal); H53.9 Unspecified visual disturbance; R41.3 Other amnesia; R90.82 White matter disease, unspecified
CPT/HCPCS: 36415; 82040; 82042; 82784; 83873; 83916; 84157; 87801; 89050

== ENCOUNTER → 2020-09-13 | Outpatient (CLI) | payer BC ==
[~2020-09-13] MED LIST changes: -HEPARIN SODIUM,PORCINE 5,000 UNIT/ML 1 ML VIAL SQ ONE; -HYDROmorphone 0.5 MG/0.5 ML SYRINGE IVP PRN; +IODINE/POTASS IOD (LUGOLS) BOTTLE TOPICAL ONE; -LACTATED RINGERS 1,000 ML IV SCH; -ONDANSETRON 4 MG/2 ML VIAL IVP PRN; -ceFAZolin IN SWFI 2 GM/20 ML SYRINGE IVP ONE
--- NOTE | 2020-09-16 07:18 | NM ---
EXAMINATION TYPE: NM DatScan Brain SPECT DATE OF EXAM: 09/13/2020 COMPARISON: Prior MRI December 23, 2011. HISTORY: Tremors. History of memory loss and abnormal gait. TECHNIQUE: 10 drops of Lugol's solution was administered 1 hour prior to injection as a thyroid bloc jaqueline agent. After the administration of 4.45 mCi I-123 Ioflupane DaTscan. Images obtained 3 hours p ost injection. SPECT images of the brain were acquired with axial and coronal reconstructions. FINDINGS: The DaTSCAN demonstrates normal uptake of tracer throughout the striata. Consequently there is no evidence of loss of the pre-synaptic dopaminergic terminals on this investig ation. IMPRESSION: This normal appearance is against a diagnosis of idiopathic Parkinson?s disease (PD) or a Parkinsonia n syndrome (PS) and is seen in healthy individuals and also patients with essential tremor (ET), drug induced parkinsonism, and vascular pseudo-parkinsonism.
== END | disposition home or self-care (01) ==
LOC: RADNMMAIN 10:52
PROVIDERS: ATTEND Psychiatry & Neurology Neurology
DX: G25.0 Essential tremor (principal); G21.19 Other drug induced secondary parkinsonism; T50.905A Adverse effect of unspecified drugs, medicaments and biological substances, initial encounter; G21.4 Vascular parkinsonism
CPT/HCPCS: 78803; A9584

== ENCOUNTER → 2021-05-06 | Outpatient (CLI) | payer OTHER ==
--- NOTE | 2021-05-06 11:27 | XR ---
EXAMINATION TYPE: XR foot complete LT DATE OF EXAM: 05/06/2021 CLINICAL HISTORY: Left foot pain TECHNIQUE: Frontal, lateral, and oblique images of the left foot are obtained. COMPARISON: None FINDINGS: There is no acute fracture/dislocation evident in the left foot. There is soft tissue swel ling of the medial left foot. Ankle joint effusion is present. IMPRESSION: Soft tissue swelling of the medial left foot and ankle joint effusion.
== END | disposition home or self-care (01) ==
LOC: RADXRMAIN 10:55
PROVIDERS: ATTEND Family Medicine
DX: M79.89 Other specified soft tissue disorders (principal); M25.472 Effusion, left ankle

== ENCOUNTER → 2021-07-02 | Outpatient (CLI) | payer OTHER ==
--- NOTE | 2021-07-03 09:35 | ECHOF ---
Referral Reason:R06.02 Dypsnea MEASUREMENTS -------- HEIGHT: 175.3 cm WEIGHT: 110.7 kg BP: RVIDd: 2.7 cm (< 3.3) IVSd: 1.3 cm (0.6 - 1.1) LVIDd: 3.5 cm (3.9 - 5.3) LVPWd: 1.5 cm (0.6 - 1.1) IVSs: 1.7 cm LVIDs: 1.9 cm LVPWs: 2.2 cm Ao Diam: 3.9 cm (2.0 - 3.7) AV Cusp: 1.9 cm (1.5 - 2.6) LA Diam: 2.8 cm (2.7 - 3.8) MV EXCURSION: 21.866 mm (> 18.000) MV EF SLOPE: 123 mm/s (70 - 150) EPSS: 1.9 cm MV E Marlon: 0.81 m/s MV DecT: 159 ms MV A Marlon: 0.94 m/s MV E/A Ratio: 0.87 RAP: 5.00 mmHg RVSP: 37.64 mmHg FINDINGS -------- This was a technically adequate study. The left ventricular size is normal. There is moderate concentric left ventricular hypertrophy. O verall left ventricular systolic function is normal with, an EF between 55 - 60 %. The right ventricle is normal in size. The left atrial size is normal. The right atrial size is normal. The aortic valve is trileaflet and appears structurally normal. The mitral valve is normal. There is trace mitral regurgitation. The tricuspid valve appears structurally normal. Mild tricuspid regurgitation present. Right vent ricular systolic pressure is normal at < 35 mmHg. There is no pulmonic regurgitation present. The aortic root size is normal. IVC Not well visulized. There is no pericardial effusion. CONCLUSIONS -------- 1. The left ventricular size is normal. 2. There is moderate concentric left ventricular hypertrophy. 3. Overall left ventricular systolic function is normal with, an EF between 55 - 60 %. 4. There is trace mitral regurgitation. 5. Mild tricuspid regurgitation present. 6. There is no pericardial effusion. ACID PAINTER: Ariela Rivera [facility]
== END | disposition home or self-care (01) ==
LOC: RADECHMAIN 12:26
PROVIDERS: ATTEND Family Medicine
DX: I08.1 Rheumatic disorders of both mitral and tricuspid valves (principal)
CPT/HCPCS: 93306

== ENCOUNTER → 2021-12-09 | Outpatient (CLI) | payer OTHER | LOC: CPPFTMAIN 13:15 | PROVIDERS: ATTEND Student in an Organized Health Care Education/Training Program | DX: G71.12 Myotonia congenita (principal); Z88.1 Allergy status to other antibiotic agents; Z88.8 Allergy status to other drugs, medicaments and biological substances | CPT/HCPCS: 94060; 94726; 94729 ==

== ENCOUNTER 2022-02-23 00:16 | Observation (INO) | payer OTHER ==
[2022-02-23] MEDS ORDERED: ASPIRIN 81 MG PO STA (02:11)
[2022-02-23 02:38] LABS: Basophils # (A) 0.1 k/uL (0-0.2); Basophils % (A) 1 %; Eosinophils # (A) 0.3 k/uL (0-0.7); Eosinophils % (A) 2 %; HCT 50.9 % (39.0-53.0); HGB 18.5 gm/dL (13.0-17.5); Lymphocytes # (A) 2.5 k/uL (1.0-4.8); Lymphocytes % (A) 23 %; MCH 31.9 pg (25.0-35.0); MCHC 36.4 g/dL (31.0-37.0); MCV 87.7 fL (80.0-100.0); Mean Platelet Volume 7.2; Monocytes # (A) 0.6 k/uL (0-1.0); Monocytes % (A) 5 %; Neutrophils # (A) 7.2 k/uL (1.3-7.7); Neutrophils % (A) 67 %; Platelet Count 331 k/uL (150-450); RBC 5.81 m/uL (4.30-5.90); RDW 13.4 % (11.5-15.5); WBC 10.8 k/uL (3.8-10.6)
[2022-02-23 02:53] LABS: ALT 78 U/L (4-49); African American GFR (CKD) 86 (>60 ml/min/1.73 sqM); Albumin 4.5 g/dL (3.5-5.0); Anion Gap 11 mmol/L; Blood Urea Nitrogen 12 mg/dL (9-20); C Reactive Protein <0.5 mg/dL (<1.0); Calcium 9.3 mg/dL (8.4-10.2); Carbon Dioxide 26 mmol/L (22-30); Chloride 101 mmol/L (98-107); Glucose 112 mg/dL (74-99); Non-African American GFR(CKD) 74 (>60 ml/min/1.73 sqM); Sodium 138 mmol/L (137-145); Total Protein 8.1 g/dL (6.3-8.2)
--- NOTE | 2022-02-23 02:53 | XR ---
EXAMINATION TYPE: XR chest 1V portable DATE OF EXAM: 02/23/2022 COMPARISON: 01/10/2019 HISTORY: Chest pain TECHNIQUE: FINDINGS: Heart and mediastinum are normal. Lungs are clear. Diaphragm is normal. There are chest dangelo ds. IMPRESSION: Normal chest. No change.
[2022-02-23 02:57] LABS: Partial Thromboplastin Time 22.4 sec (22.0-30.0); Prothrombin Time 10.9 sec (9.0-12.0)
[2022-02-23 03:16] LABS: AST 63 U/L (17-59); Alkaline Phosphatase 67 U/L (38-126); Magnesium 2.1 mg/dL (1.6-2.3); Potassium 4.6 mmol/L (3.5-5.1)
--- NOTE | 2022-02-23 04:31 | ED ---
General Adult HPI - General Chief complaint: Neck Pain/Injury Stated complaint: neck pain, foot swelling Time Seen by Provider: 02/23/22 01:53 Source: patient Mode of arrival: ambulatory Limitations: no limitations - History of Present Illness Initial comments: This patient is a 52-year-old man who presents to be evaluated for pain on the left side the anterior portion of his neck. He indicates inferior to the angle of the mandible. The patient's states that had come on after he missed his dose of beta sandy. The pain has been somewhat intermittent tonight when he decided to come to the emergency department she noted that he was sweating prof usely. Patient denies chest pain. No nausea or vomiting. No palpitations, syncope though he was lightheaded briefly -: hour(s) Location: neck Radiation: non-radiation Quality: aching Consistency: constant Improves with: none Worsens with: other Associated Symptoms: diaphoresis Treatments Prior to Arrival: none - Related Data Home Medications Medication Instructions Recorded Confirmed Omeprazole 20 mg PO AC-SUPPER 01/15/18 02/23/22 Aspirin EC [Ecotrin Low Dose] 81 mg PO DAILY 02/23/22 02/23/22 Cholecalciferol [Vitamin D3 (25 25 mcg PO DAILY 02/23/22 02/23/22 Mcg = 1000 Iu)] Cyclobenzaprine [Flexeril] 10 mg PO BID PRN 02/23/22 02/23/22 Mexiletine [Mexitil] 150 mg PO TID 02/23/22 02/23/22 Propranolol HCl [Inderal Xl] 80 mg PO HS 02/23/22 02/23/22 hydroCHLOROthiazide 25 mg PO DAILY 02/23/22 02/23/22 traZODone HCL 100 mg PO HS 02/23/22 02/23/22 Allergies Allergy/AdvReac Type Severity Reaction Status Date / Time [place] And Derivatives Allergy Anaphylaxis Verified 02/23/22 06:46 [[place]] grape Allergy Anaphylaxis Verified 02/23/22 06:46 lorazepam [From Ativan] Allergy Swelling Verified 02/23/22 06:46 of arm of injection, given with Compazine prochlorperazine Allergy Swelling Verified 02/23/22 06:46 [From Compazine] of arm of injection, given with Ativan walnut Allergy Anaphylaxis Verified 02/23/22 06:46 Review of Systems ROS Statement: Those systems with pertinent positive or pertinent negative responses have been documented in the HPI. ROS Other: All systems not noted in ROS Statement are negative. Constitutional: Denies: fever, chills, weakness Eyes: Denies: vision change ENT: Reports: other (Left-sided neck pain). Denies: ear pain, throat pain Respiratory: Denies: cough, dyspnea Cardiovascular: Denies: chest pain, palpitations, orthopnea, edema, syncope Gastrointestinal: Denies: abdominal pain, vomiting, diarrhea Genitourinary: Denies: dysuria Musculoskeletal: Denies: back pain Skin: Denies: rash Neurological: Denies: headache, weakness, numbness Past Medical History Past Medical History: GERD/Reflux Additional Past Medical History / Comment(s): Hx nerve damage of the neck 10 yrs ago, resolved now. Myotonia congenta type 1. History of Any Multi-Drug Resistant Organisms: None Reported Past Surgical History: No Surgical Hx Reported Additional Past Surgical History / Comment(s): EGD Past Anesthesia/Blood Transfusion Reactions: No Reported Reaction Past Psychological History: Anxiety Smoking Status: Never smoker Past Alcohol Use History: None Reported Past Drug Use History: None Reported - Past Family History Father Family Medical History: Deep Vein Thrombosis (DVT), Hyperlipidemia, Hypertension, Myocardial Infarction ([place]) Mother History Unknown: Yes General Exam Limitations: no limitations General appearance: alert, in no apparent distress Head exam: Present: atraumatic, normocephalic Eye exam: Present: normal appearance. Absent: scleral icterus, conjunctival injection ENT exam: Present: normal oropharynx, normal external ear exam Neck exam: Present: normal inspection, tenderness (There is some mild tenderness left side of the neck anteriorly. No palpable mass or nodule. No erythema or warmth.), full ROM. Absent: meningismus Respiratory exam: Present: normal lung sounds bilaterally. Absent: respiratory distress, wheezes, rales, rhonchi, stridor Cardiovascular Exam: Present: regular rate, normal rhythm, normal heart sounds. Absent: systolic murmur, diastolic murmur, rubs, gallop GI/Abdominal exam: Present: soft. Absent: distended, tenderness, guarding, rebound, rigid Extremities exam: Present: normal inspection, normal capillary refill. Absent: pedal edema, calf tenderness Back exam: Present: normal inspection. Absent: CVA tenderness (R), CVA tenderness (L) Neurological exam: Present: alert Skin exam: Present: intact, diaphoretic, mottled. Absent: rash Course Vital Signs 02/23/22 02/23/22 02/23/22 00:18 02:18 03:00 Temperature 98.7 F Pulse Rate 79 60 67 Respiratory 18 18 18 Rate Blood Pressure 151/91 117/78 131/9 O2 Sat by Pulse 96 94 L 95 Oximetry 02/23/22 02/23/22 04:00 05:00 Temperature Pulse Rate 64 62 Respiratory 18 18 Rate Blood Pressure 132/89 139/91 O2 Sat by Pulse 97 95 Oximetry EKG Findings - EKG Comments: EKG Findings:: First is the patient's comparison ECG from 2018, there are T inversions and flattening in the anterior leads V3 through 6. - EKG Results: EKG: interpreted by ROSALIND, sinus rhythm, normal axis, normal QRS Medical Decision Making - Lab Data Result diagrams: 02/23/22 02:09 02/23/22 02:09 Lab Results 02/23/22 02/23/22 02/23/22 Range/Units 02:09 02:09 02:09 WBC 10.8 H (3.8-10.6) k/uL RBC 5.81 (4.30-5.90) m/uL Hgb 18.5 H (13.0-17.5) gm/dL Hct 50.9 (39.0-53.0) % MCV 87.7 (80.0-100.0) fL MCH 31.9 (25.0-35.0) pg MCHC 36.4 (31.0-37.0) g/dL RDW 13.4 (11.5-15.5) % Plt Count 331 (150-450) k/uL MPV 7.2 Neutrophils % 67 % Lymphocytes % 23 % Monocytes % 5 % Eosinophils % 2 % Basophils % 1 % Neutrophils # 7.2 (1.3-7.7) k/uL Lymphocytes # 2.5 (1.0-4.8) k/uL Monocytes # 0.6 (0-1.0) k/uL Eosinophils # 0.3 (0-0.7) k/uL Basophils # 0.1 (0-0.2) k/uL PT 10.9 (9.0-12.0) sec INR 1.0 (<1.2) APTT 22.4 (22.0-30.0) sec D-Dimer 0.23 (<0.60) mg/L FEU Sodium 138 (137-145) mmol/L Potassium 4.6 (3.5-5.1) mmol/L Chloride 101 (98-107) mmol/L Carbon Dioxide 26 (22-30) mmol/L Anion Gap 11 mmol/L BUN 12 (9-20) mg/dL Creatinine 1.15 (0.66-1.25) mg/dL Est GFR (CKD-EPI)AfAm 86 (>60 ml/min/1.73 sqM) Est GFR (CKD-EPI)NonAf 74 (>60 ml/min/1.73 sqM) Glucose 112 H (74-99) mg/dL Plasma Lactic Acid Wes (0.7-2.0) mmol/L Calcium 9.3 (8.4-10.2) mg/dL Magnesium 2.1 (1.6-2.3) mg/dL Total Bilirubin 1.0 (0.2-1.3) mg/dL AST 63 H (17-59) U/L ALT 78 H (4-49) U/L Alkaline Phosphatase 67 (38-126) U/L Troponin I (0.000-0.034) ng/mL C-Reactive Protein <0.5 (<1.0) mg/dL Total Protein 8.1 (6.3-8.2) g/dL Albumin 4.5 (3.5-5.0) g/dL 02/23/22 02/23/22 Range/Units 02:09 02:09 WBC (3.8-10.6) k/uL RBC (4.30-5.90) m/uL Hgb (13.0-17.5) gm/dL Hct (39.0-53.0) % MCV (80.0-100.0) fL MCH (25.0-35.0) pg MCHC (31.0-37.0) g/dL RDW (11.5-15.5) % Plt Count (150-450) k/uL MPV Neutrophils % % Lymphocytes % % Monocytes % % Eosinophils % % Basophils % % Neutrophils # (1.3-7.7) k/uL Lymphocytes # (1.0-4.8) k/uL Monocytes # (0-1.0) k/uL Eosinophils # (0-0.7) k/uL Basophils # (0-0.2) k/uL PT (9.0-12.0) sec INR (<1.2) APTT (22.0-30.0) sec D-Dimer (<0.60) mg/L FEU Sodium (137-145) mmol/L Potassium (3.5-5.1) mmol/L Chloride (98-107) mmol/L Carbon Dioxide (22-30) mmol/L Anion Gap mmol/L BUN (9-20) mg/dL Creatinine (0.66-1.25) mg/dL Est GFR (CKD-EPI)AfAm (>60 ml/min/1.73 sqM) Est GFR (CKD-EPI)NonAf (>60 ml/min/1.73 sqM) Glucose (74-99) mg/dL Plasma Lactic Acid Wes 2.0 (0.7-2.0) mmol/L Calcium (8.4-10.2) mg/dL Magnesium (1.6-2.3) mg/dL Total Bilirubin (0.2-1.3) mg/dL AST (17-59) U/L ALT (4-49) U/L Alkaline Phosphatase (38-126) U/L Troponin I <0.012 (0.000-0.034) ng/mL C-Reactive Protein (<1.0) mg/dL Total Protein (6.3-8.2) g/dL Albumin (3.5-5.0) g/dL Disposition Clinical Impression: Neck pain Disposition: ADMITTED IP TO THIS [facility] Condition: Stable Is patient prescribed a controlled substance at d/c from ED?: No
[2022-02-23] MEDS ORDERED: NITROGLYCERIN SL TABS 0.4 MG TAB SUBLINGUAL PRN (04:32)
[2022-02-23] MEDS ORDERED: ATORVASTATIN 80 MG TAB PO STA (04:47)
--- NOTE | 2022-02-23 04:48 | P.HPIM ---
History of Present Illness H&P Date: 02/23/22 The patient is a 52-year-old male with a PMH of adult onset muscular dystrophy and hypertension who presents to the emergency room with complaints of diaphoresis and neck pain. The patient reports that over the past few days, every evening he starts feeling ill at around 7 pm. He states feeling lethargic and unwell during this time but that last night, he also developed diaphoresis. Reports that his neck pain is achy in nature, radiating up to his jaw, 5 out of 10 in intensity, with no alleviating or exacerbating features, and constant. Denied experiencing chest discomfort, shortness of breath, nausea, vomiting, palpitations, or lightheadedness. Also denied fever, chills, cough, abdominal pain, or diarrhea. EKG in the emergency room revealed sinus rhythm at 74 bpm with left axis deviation and T-wave inversions in leads V3 to V5, and leads III and aVF, new when compared to prior EKGs from 2018. Chest x-ray was unremarkable. Laboratory evaluation revealed WBC count of 10.8, AST 63, and ALT 78. Review of systems: Pertinent positives and negatives as discussed in HPI, a complete review of systems was performed and all other systems are negative. Physical examination: General: non toxic, no distress, appears at stated age, obese Derm: no unusual rashes/lesions no unusual ecchymoses, warm, dry Head: atraumatic, normocephalic, symmetric Eyes: EOMI, no lid lag, anicteric sclera, pupils equal round reactive to light ENT: Nose and ears atraumatic, no thrush, no pharyngeal erythema Neck: No thyromegaly, no cervical lymphadenopathy, trachea midline, supple Mouth: no lip lesion, mucus membranes moist Cardiovascular: S1S2 reg, no murmur, positive posterior tibial pulse bilateral, no edema, capillary refill less than 2 seconds Lungs: CTA bilateral, no rhonchi, no rales , no accessory muscle use Abdominal: soft, nontender to palpation, no guarding, no appreciable organome gerda, normal bowel sounds Ext: no gross muscle atrophy, muscle strength 4 out of 5 in all 4 extremities grossly, no contractures, Neuro: CN II-XI grossly intact, light touch intact all 4 extremities, finger to nose within normal limits, Psych: Alert, oriented, appropriate affect Assessment/plan Neck pain, diaphoresis and EKG changes -Concerns for angina equivalence -Cardiac monitoring -Trend troponin -Cardiology consult -Continue with aspirin and statin Leukocytosis, likely due to acute stressor -No sign of active infection at this time -Monitor for now DVT prophylaxis -Heparin Subcu The patient is admitted with an anticipated less than 2 midnight stay for evaluation of neck pain CODE STATUS: Full Code Discussed with: Patient Anticipated discharge date: in am Anticipated discharge place: Home Past Medical History Past Medical History: GERD/Reflux Additional Past Medical History / Comment(s): Hx nerve damage of the neck 10 yrs ago, resolved now. Myotonia congenta type 1. History of Any Multi-Drug Resistant Organisms: None Reported Past Surgical History: No Surgical Hx Reported Additional Past Surgical History / Comment(s): EGD Past Anesthesia/Blood Transfusion Reactions: No Reported Reaction Past Psychological History: Anxiety Smoking Status: Never smoker Past Alcohol Use History: None Reported Past Drug Use History: None Reported - Past Family History Father Family Medical History: Deep Vein Thrombosis (DVT), Hyperlipidemia, Hypertension, Myocardial Infarction (CT) Mother History Unknown: Yes Medications and Allergies Home Medications Medication Instructions Recorded Confirmed Type Omeprazole 20 mg PO Q48H PRN 01/15/18 01/26/18 History Docusate [Colace] 100 mg PO BID #20 capsule 01/26/18 Rx HYDROcodone/APAP 7.5-325MG [Thrall 1 each PO Q4H PRN #30 tab 01/26/18 Rx 7.5] Allergies Allergy/AdvReac Type Severity Reaction Status Date / Time lorazepam [From Ativan] AdvReac Swelling Verified 02/23/22 00:25 prochlorperazine AdvReac Swelling Verified 02/23/22 00:25 [From Compazine] Physical Exam Vitals: Vital Signs Temp Pulse Resp BP Pulse Ox 02/23/22 02:18 60 18 117/78 94 L 02/23/22 00:18 98.7 F 79 18 151/91 96 Intake and Output 02/22/22 02/22/22 02/23/22 14:59 22:59 06:59 Other: Weight 114.305 kg Results CBC & Chem 7: 02/23/22 02:09 02/23/22 02:09 Labs: Abnormal Lab Results - Last 24 Hours (Table) 02/23/22 02/23/22 Range/Units 02:09 02:09 WBC 10.8 H (3.8-10.6) k/uL Hgb 18.5 H (13.0-17.5) gm/dL Glucose 112 H (74-99) mg/dL AST 63 H (17-59) U/L ALT 78 H (4-49) U/L
[2022-02-23] MEDS ORDERED: HEPARIN SODIUM,PORCINE/PF 5,000 UNIT/0.5 ML SYRINGE SQ SCH (08:00)
[2022-02-23] MEDS ORDERED: AMINOPHYLLINE 500 MG/20 ML VIAL IV PRN (08:14)
[2022-02-23] MEDS ORDERED: REGADENOSON 0.4 MG/5 ML SYRINGE IV PRN (08:14)
[2022-02-23] MEDS ORDERED: CAFFEINE CITRATE 60 MG/3 ML VIAL IV PRN (08:14)
[2022-02-23 08:19] VITALS: RESP 16
--- NOTE | 2022-02-23 08:26 | P.CRDCN ---
History of Present Illness History of present illness: HISTORY OF PRESENTING ILLNESS This is a pleasant 52-year-old with past medical history significant for with history of adult-onset muscular dystrophy, hypertension who presents secondary to a number of complaints over last 3 weeks. He states initially he was having more episodes of feeling his heart racing and occasional lightheadedness and therefore had been prescribed metoprolol. He states the lightheaded episodes continued and he was feeling somewhat more fatigued with the metoprolol. He denied any actual shortness breath or chest pain at that time. Over the last 24 hours he has been having more episodes of breaking out in sweats and then developed some jaw pain and therefore was more concerned and came to emergency department. He states yesterday the pain lasted for around 2-3 hours and was often not associated with some diaphoresis. He states nothing really helped or worsens the episodes. He is also having some tooth pain and headache which is new for him. He denies any fevers or chills or cough. He was noted to have mildly increased white blood cell count and troponins normal with EKG showing minimal nonspecific ST depression in V3 through V5. He does have family history of father with AR believes in his 60s, no alcohol, no tobacco, no illicit drugs. REVIEW OF SYSTEMS At the time of my exam: CONSTITUTIONAL: Denies fever or chills. CARDIOVASCULAR: Denies chest pain, shortness of breath, orthopnea, PND or +palpitations. +jaw pain, POP, moravian pain RESPIRATORY: Denies cough. GASTROINTESTINAL: Denies abdominal pain, diarrhea, constipation, nausea or vomiting. MUSCULOSKELETAL: Denies myalgias. NEUROLOGIC: Denies numbness, tingling or weakness. ENDOCRINE: Denies fatigue, weight change, polydipsia or polyurina. GENITOURINARY: Denies burning, hematuria or urgency with micturation. HEMATOLOGIC: Denies history of anemia or bleeding. PHYSICAL EXAMINATION Vital signs reviewed. CONSTITUTIONAL: No apparent distress. HEENT: Head is normocephalic. Pupils are equal, round. Sclerae anicteric. Mucous membranes of the mouth are moist. No JVD. No carotid bruit. CHEST EXAMINATION: Lungs are clear to auscultation. No chest wall tenderness is noted on palpation or with deep breathing. HEART EXAMINATION: Regular rate and rhythm. S1, S2 heard. No murmurs, gallops or rub. ABDOMEN: Soft, nontender. Positive bowel sounds. EXTREMITIES: 2+ peripheral pulses, no lower extremity edema and no calf tenderness. NEUROLOGIC EXAMINATION: Patient is awake, alert and oriented x3. ASSESSMENT 1. New-onset of jaw pain with some atypical diaphoresis. Some typical features however troponin is normal 3 and acute coronary syndrome ruled out. 2. History of hypertension 3. Lightheadedness appears more orthostatic in nature 4. New-onset headache, moravian pain 5. Mild leukocytosis 6. History of muscular dystrophy on mexiletine PLAN Patient's symptoms are somewhat atypical and may also have some form of viral illness. He is also complaining of some tooth pain and headache. Some of his lightheadedness appears more orthostatic in nature and states his occurring when he stands up too quickly. Blood pressures have been borderline with new medication metoprolol. We discussed possible options including heart catheterization versus stress testing and patient would prefer stress testing. If stress testing normal patient would be cleared from a cardiology standpoint for discharge home on current regimen with aspirin and metoprolol and close follow-up in the office within one week. Past Medical History Past Medical History: GERD/Reflux Additional Past Medical History / Comment(s): Hx nerve damage of the neck 10 yrs ago, resolved now. Myotonia congenta type 1. History of Any Multi-Drug Resistant Organisms: None Reported Past Surgical History: No Surgical Hx Reported Additional Past Surgical History / Comment(s): EGD Past Anesthesia/Blood Transfusion Reactions: No Reported Reaction Past Psychological History: Anxiety Smoking Status: Never smoker Past Alcohol Use History: None Reported Past Drug Use History: None Reported - Past Family History Father Family Medical History: Deep Vein Thrombosis (DVT), Hyperlipidemia, Hypertension, Myocardial Infarction (AR) Mother History Unknown: Yes Medications and Allergies Home Medications Medication Instructions Recorded Confirmed Type Omeprazole 20 mg PO AC-SUPPER 01/15/18 02/23/22 History Aspirin EC [Ecotrin Low Dose] 81 mg PO DAILY 02/23/22 02/23/22 History Cholecalciferol [Vitamin D3 (25 25 mcg PO DAILY 02/23/22 02/23/22 History Mcg = 1000 Iu)] Cyclobenzaprine [Flexeril] 10 mg PO BID PRN 02/23/22 02/23/22 History Mexiletine [Mexitil] 150 mg PO TID 02/23/22 02/23/22 History Propranolol HCl [Inderal Xl] 80 mg PO HS 02/23/22 02/23/22 History hydroCHLOROthiazide 25 mg PO DAILY 02/23/22 02/23/22 History traZODone HCL 100 mg PO HS 02/23/22 02/23/22 History Allergies Allergy/AdvReac Type Severity Reaction Status Date / Time [place] And Derivatives Allergy Anaphylaxis Verified 02/23/22 06:46 [[place]] grape Allergy Anaphylaxis Verified 02/23/22 06:46 lorazepam [From Ativan] Allergy Swelling Verified 02/23/22 06:46 of arm of injection, given with Compazine prochlorperazine Allergy Swelling Verified 02/23/22 06:46 [From Compazine] of arm of injection, given with Ativan [place] Allergy Anaphylaxis Verified 02/23/22 06:46 Physical Exam Vitals: Vital Signs Temp Pulse Resp BP Pulse Ox 02/23/22 05:00 62 18 139/91 95 02/23/22 04:00 64 18 132/89 97 02/23/22 03:00 67 18 131/9 95 02/23/22 02:18 60 18 117/78 94 L 02/23/22 00:18 98.7 F 79 18 151/91 96 Intake and Output 02/22/22 02/23/22 02/23/22 22:59 06:59 14:59 Other: Weight 114.305 kg Results 02/23/22 02:09 02/23/22 02:09 Cardiac Enzymes 02/23/22 02/23/22 02/23/22 Range/Units 02:09 02:09 05:38 AST 63 H (17-59) U/L Troponin I <0.012 <0.012 (0.000-0.034) ng/mL Coagulation 02/23/22 Range/Units 02:09 PT 10.9 (9.0-12.0) sec APTT 22.4 (22.0-30.0) sec CBC 02/23/22 Range/Units 02:09 WBC 10.8 H (3.8-10.6) k/uL RBC 5.81 (4.30-5.90) m/uL Hgb 18.5 H (13.0-17.5) gm/dL Hct 50.9 (39.0-53.0) % Plt Count 331 (150-450) k/uL Comprehensive Metabolic Panel 02/23/22 Range/Units 02:09 Sodium 138 (137-145) mmol/L Potassium 4.6 (3.5-5.1) mmol/L Chloride 101 (98-107) mmol/L Carbon Dioxide 26 (22-30) mmol/L BUN 12 (9-20) mg/dL Creatinine 1.15 (0.66-1.25) mg/dL Glucose 112 H (74-99) mg/dL Calcium 9.3 (8.4-10.2) mg/dL AST 63 H (17-59) U/L ALT 78 H (4-49) U/L Alkaline Phosphatase 67 (38-126) U/L Total Protein 8.1 (6.3-8.2) g/dL Albumin 4.5 (3.5-5.0) g/dL Current Medications Generic Name Dose Route Start Last Admin Trade Name Freq PRN Reason Stop Dose Admin Aminophylline 100 mg 02/23/22 08:14 Aminophylline 500 Mg/20 Ml Vial IV 02/23/22 12:15 ONCE PRN Patient Response Aspirin 325 mg 02/24/22 09:00 Aspirin 325 Mg Tab PO DAILY DUANE Caffeine Citrate 60 mg 02/23/22 08:14 Caffeine Citrate 60 Mg/3 Ml Vial IV 02/23/22 12:15 ONCE PRN Patient Response Heparin Sodium (Porcine) 5,000 unit 02/23/22 08:00 Heparin Sodium,Porcine/Pf 5,000 Unit/0.5 Ml Syringe SQ Q8HR DUANE Nitroglycerin 0.4 mg 02/23/22 04:32 Nitroglycerin Sl Tabs 0.4 Mg Tab SUBLINGUAL Q5M PRN Chest Pain Regadenoson 0.4 mg 02/23/22 08:14 Regadenoson 0.4 Mg/5 Ml Syringe IV 02/23/22 12:15 ONCE PRN Per Protocol Intake and Output 02/22/22 02/23/22 02/23/22 22:59 06:59 14:59 Other: Weight 114.305 kg 02/23/22 02:09 02/23/22 02:09
--- NOTE | 2022-02-23 11:53 | NM ---
EXAMINATION TYPE: NM stress lexiscan cardiolite DATE OF EXAM: 02/23/2022 COMPARISON: NONE HISTORY: Chest pain TECHNIQUE: After the intravenous administration of 10.2 mCi Tc 99m Sestamibi - Cardiolite resting SP ECT images acquired 50 minutes post injection. The patient received 0.4mg Lexiscan, 25.3 mCi Tc 99m Sestamibi - Stress images obtained [address] injection FINDINGS: Review of stress and rest SPECT images demonstrates no distinct perfusion abnormality. Gated analysi s shows normal wall motion with an estimated left ventricular ejection fraction of 62 %. IMPRESSION: No scintigraphic evidence for reversible ischemia.
--- NOTE | 2022-02-23 12:20 | P.STRESS ---
- Stress Test Note Stress Test Results/Findings: Exam Performed: NM stress lexiscan cardiolite Exam Date: 02/23/22 Reason for Exam: CHEST PAIN Height: 5 ft 9 in Weight: 114.31 kg Protocol: LEXISCAN Stage: NA Duration of Exercise: 5 MINUTE INFUSION TI Resting Heart Rate: 63 Resting Blood Pressure: 136/90 Maximum Achieved Heart Rate: 89 Maximum Achieved Blood Pressure: 136/9 85% PMHR: 145 100% PMHR: 170 METS: NA Technologist Comment: Stress Test Results/Findings: At baseline EKG showed normal sinus rhythm, normal axis, T-wave inversion in lead 3 and aVF and flattening in lead V3 and V4. Patient recieved IV infusion of Lexiscan 0.4mg and at peak infusion EKG showed no significant change from baseline. Conclusions: 1. Nonspecific EKG portion given baseline EKG abnormalities. 2. Nuclear imaging to be reported separately.
--- NOTE | 2022-02-23 12:35 | US ---
EXAMINATION TYPE: US venous doppler duplex LE RT DATE OF EXAM: 02/23/2022 11:12 AM COMPARISON: NONE CLINICAL HISTORY: pt reports swelling and pain x 2 days. Pt states swelling to right foot SIDE PERFORMED: Right TECHNIQUE: The lower extremity deep venous system is examined utilizing real time linear array sonog edilberto with graded compression, doppler sonography and color-flow sonography. VESSELS IMAGED: Common Femoral Vein Deep Femoral Vein Greater Saphenous Vein * Femoral Vein Popliteal Vein Small Saphenous Vein * Proximal Calf Veins (* superficial vessels) Right Leg: Negative for DVT IMPRESSION: No evidence for DVT at this time.
[2022-02-23] MEDS ORDERED: HYDROcodone/APAP 5-325MG 1 EACH TAB PO PRN (14:03)
[2022-02-23] MEDS ORDERED: ACETAMINOPHEN TAB 325 MG TAB PO PRN (14:10)
--- NOTE | 2022-02-23 14:31 | P.DS ---
Providers Date of admission: 02/23/22 04:32 Expected date of discharge: 02/23/22 Attending physician: Oz Gomez MD Primary care physician: Yamel Salazar [place] Hospital Course: Discharge Diagnosis: Neck pain, diaphoresis, and EKG changes. Acute coronary event ruled out. Leukocytosis Adult onset muscular dystrophy Hypertension Hospital Course: patient is a very pleasant 52-year-old male with a past medical history of adult-onset muscular dystrophy and hypertension. He presented to the emergency department with a chief complaint of left-sided neck pain and diaphoresis. It is reported that these symptoms began approximately 2 days ago accompanied by lethargy and concerns of swelling in his right lower extremity. Patient reports pain and neck radiates into left anterior chest and up into his jaw described as an achiness, denies anything making it better or worse. He was seen and fully evaluated in the emergency department and admitted under our services with consultation to cardiology to rule out an acute coronary event. an EKG was completed revealing sinus rhythm with mild ST depression in anteriolateral leads V3 through V5. CBC revealed mild leukocytosis with a CBC revealed mild leukocytosis with WBC count of 10.8 and CMP revealing mild elevation of AST of 63 and ALT of 78. Troponins trended 3 all less than 0.012. Chest x-ray negative for acute cardiopulmonary process. Doppler of right lower extremity completed negative for DVT. patient underwent Una scan stress test which was negative showing no scintographic evidence for reversible ischemia. Cardiology clearing patient of acute coronary event recommending outpatient follow-up in 1- 2 weeks.vital signs unremarkable. Patient showing no signs of acute distress. Patient is medically stable for discharge home at this time. Discharge instructions discussed with patient and his mother and father at bedside. Patient and family verbalized understanding of discharge instructions and follow-up recommendations with all questions answered at this time. Patient seen and examined at bedside. Vital signs reviewed and stable. General: Nontoxic, no distress and appears stated age. Derm: Skin warm and dry, normal coloration for ethnicity. Head: Atraumatic, normocephalic and symmetric. Eyes: EOMs intact, no lid lag, and anicteric sclera Mouth: no lip lesions, mucus membranes moist Cardiovascular: regular rate and rhythm with normal S1S2, no murmur, positive posterior tibial pulses bilaterally, and cap refill < 2 seconds. Lungs: Respirations even, regular, and unlabored on room air. Lungs CTA bilaterally, no rhonchi, no rales, no wheezing, and no accessory muscle usage. Abdominal: soft, nontender to palpation, no guarding, no appreciable organomegaly Ext: ROM intact. No gross muscle atrophy, no edema, no contractures Neuro: Speech clear, face symmetrical and CN II-XII grossly intact with no noted focal neuro deficits Psych: Alert and oriented to person, place, time, and situation. Appropriate and pleasant affect. A total of 39 minutes of time were spent preparing this complex discharge summary. Patient Condition at Discharge: Stable Plan - Discharge Summary Discharge Rx Participant: No New Discharge Prescriptions: Continue Omeprazole 20 mg PO AC-SUPPER Cyclobenzaprine [Flexeril] 10 mg PO BID PRN PRN Reason: Muscle Spasm Mexiletine [Mexitil] 150 mg PO TID hydroCHLOROthiazide 25 mg PO DAILY Cholecalciferol [Vitamin D3 (25 Mcg = 1000 Iu)] 25 mcg PO DAILY traZODone HCL 100 mg PO HS Propranolol HCl [Inderal Xl] 80 mg PO HS Aspirin EC [Ecotrin Low Dose] 81 mg PO DAILY Discharge Medication List Omeprazole 20 mg PO AC-SUPPER 01/15/18 [History] Aspirin EC [Ecotrin Low Dose] 81 mg PO DAILY 02/23/22 [History] Cholecalciferol [Vitamin D3 (25 Mcg = 1000 Iu)] 25 mcg PO DAILY 02/23/22 [History] Cyclobenzaprine [Flexeril] 10 mg PO BID PRN 02/23/22 [History] Mexiletine [Mexitil] 150 mg PO TID 02/23/22 [History] Propranolol HCl [Inderal Xl] 80 mg PO HS 02/23/22 [History] hydroCHLOROthiazide 25 mg PO DAILY 02/23/22 [History] traZODone HCL 100 mg PO HS 02/23/22 [History] Follow up Appointment(s)/Referral(s): Yamel Salazar MD [Primary Care Provider] - 1-2 days Chapo Carrasquillo DO [STAFF PHYSICIAN] - 1 Week Activity/Diet/Wound Care/Special Instructions: Activity: As tolerated. Take breaks as needed. Diet: Heart healthy and carb consistent diet. Avoid salts, or foods with hidden salts such as canned or boxed foods and frozen dinners. Extra salt makes your heart work harder and traps the fluid in your body for longer. Special Instructions: Take all of your medications as directed and remember to keep all of your doctor's appointments and follow-up as needed. Thank you for allowing us to participate in your care, it was truly a pleasure having you for our patient!!! Discharge Disposition: HOME SELF-CARE
[2022-02-23 14:43] VITALS: BP 138/82; PULSE 65; TEMP 98
[2022-02-24] MEDS ORDERED: ASPIRIN 325 MG TAB PO SCH (09:00)
== END 2022-02-23 14:50 | disposition home or self-care (01) ==
LOC: EC 00:16 → 6NMEDSUR 04:32
PROVIDERS: ADMIT Internal Medicine; ATTEND Internal Medicine
DX: M54.2 Cervicalgia (principal); M79.89 Other specified soft tissue disorders; R61 Generalized hyperhidrosis; R68.84 Jaw pain; K08.89 Other specified disorders of teeth and supporting structures; R51.9 Headache, unspecified; R42 Dizziness and giddiness; R53.83 Other fatigue; R94.31 Abnormal electrocardiogram [ECG] [EKG]; D72.829 Elevated white blood cell count, unspecified; R74.01 Elevation of levels of liver transaminase levels; I10 Essential (primary) hypertension; G71.00 Muscular dystrophy, unspecified; K21.9 Gastro-esophageal reflux disease without esophagitis; F41.9 Anxiety disorder, unspecified; G71.12 Myotonia congenita; E66.9 Obesity, unspecified; Z68.37 Body mass index [BMI] 37.0-37.9, adult; Z79.899 Other long term (current) drug therapy; Z88.8 Allergy status to other drugs, medicaments and biological substances; Z79.82 Long term (current) use of aspirin; Z91.018 Allergy to other foods; Z82.49 Family history of ischemic heart disease and other diseases of the circulatory system; Z83.438 Family history of other disorder of lipoprotein metabolism and other lipidemia; Z83.2 Family history of diseases of the blood and blood-forming organs and certain disorders involving the immune mechanism
CPT/HCPCS: 96372; 99284; 36415; 93005; 93017; 85379; 80053; 83605; 83735; 84484; 85025; 85610; 85730; 86140; 71045; 93971; 78452; G0378; A9500; J2785; J1644

== ENCOUNTER → 2022-11-25 | Outpatient (CLI) | payer OTHER ==
[2022-11-25 20:38] LABS: Chol/HDL Ratio 4.48 Ratio; LDL Cholesterol,Calculated 113.7 mg/dL (0.0-131.0)
== END | disposition home or self-care (01) ==
LOC: LABWHC1 12:30
PROVIDERS: ATTEND Family Medicine
DX: Z00.00 Encounter for general adult medical examination without abnormal findings (principal)
CPT/HCPCS: 36415; 80061; 84443

== ENCOUNTER → 2023-06-17 | Outpatient (CLI) | payer OTHER ==
[2023-06-17 17:03] LABS: Basophils # (A) 0.07 X 10*3/uL (0.00-0.10); Basophils % (A) 1.1 %; Eosinophils # (A) 0.29 X 10*3/uL (0.04-0.35); Eosinophils % (A) 4.4 %; HCT 50.1 % (39.6-50.0); HGB 18.2 d/dL (13.0-17.0); Lymphocytes # (A) 2.01 X 10*3/uL (0.90-5.00); Lymphocytes % (A) 30.4 %; MCH 30.3 pg (27.0-32.0); MCHC 36.3 d/dL (32.0-37.0); MCV 83.4 FL (80.0-97.0); Mean Platelet Volume 9.9 FL (9.5-12.2); Monocytes # (A) 0.53 X 10*3/uL (0.20-1.00); NRBC Per 100 WBC 0 X 10*3/uL (0.00-0.01); Neutrophils # (A) 3.71 X 10*3/uL (1.80-7.70); Neutrophils % (A) 55.9 %; Platelet Count 284 X 10*3/uL (140-440); RBC 6.01 X 10*6/uL (4.40-5.60); RDW 12.7 % (11.5-14.5); WBC 6.62 X 10*3/uL (4.50-10.00)
[2023-06-17 17:20] LABS: ALT 73 U/L (10-49); AST 51 U/L (14-35); Albumin 4.4 d/dL (3.8-4.9); Albumin/Globulin Ratio 1.52 Ratio (1.60-3.17); Alkaline Phosphatase 75 U/L (41-126); BUN/Creat Ratio 7.67 Ratio (12.00-20.00); Blood Urea Nitrogen 9.2 mg/dL (9.0-27.0); Calcium 9.6 mg/dL (8.7-10.3); Carbon Dioxide 24.7 mmol/L (21.6-31.8); Chloride 101 mmol/L (96-109); Chol/HDL Ratio 4.92 Ratio; Globulin 2.9 d/dL (1.6-3.3); Glucose 102 mg/dL (70-110); LDL Cholesterol,Calculated 124.5 mg/dL (0.0-131.0); Sodium 139 mmol/L (135-145); Total Bilirubin 0.6 mg/dL (0.3-1.2); Total Protein 7.3 d/dL (6.2-8.2)
== END | disposition home or self-care (01) ==
LOC: LABWHC1 10:39
PROVIDERS: ATTEND Family Medicine
DX: I10 Essential (primary) hypertension (principal)
CPT/HCPCS: 36415; 80053; 80061; 84443; 85025

== ENCOUNTER → 2023-07-06 | Outpatient (CLI) | payer MEDICARE, OTHER ==
[2023-07-06 20:35] LABS: Basophils # (A) 0.05 X 10*3/uL (0.00-0.10); Basophils % (A) 0.7 %; Eosinophils # (A) 0.32 X 10*3/uL (0.04-0.35); Eosinophils % (A) 4.3 %; HCT 50.3 % (39.6-50.0); Lymphocytes # (A) 2.05 X 10*3/uL (0.90-5.00); Lymphocytes % (A) 27.3 %; MCH 30.2 pg (27.0-32.0); MCHC 35.8 d/dL (32.0-37.0); MCV 84.4 FL (80.0-97.0); Mean Platelet Volume 10.3 FL (9.5-12.2); Monocytes # (A) 0.63 X 10*3/uL (0.20-1.00); Monocytes % (A) 8.4 %; NRBC Per 100 WBC 0 X 10*3/uL (0.00-0.01); Neutrophils # (A) 4.42 X 10*3/uL (1.80-7.70); Neutrophils % (A) 58.9 %; Platelet Count 296 X 10*3/uL (140-440); RBC 5.96 X 10*6/uL (4.40-5.60); RDW 12.4 % (11.5-14.5)
[2023-07-06 21:17] LABS: % Iron Saturation 24.19 (15.00-50.00)
== END | disposition home or self-care (01) ==
LOC: LABWHC1 14:59
PROVIDERS: ATTEND Family Medicine
DX: R71.8 Other abnormality of red blood cells (principal)
CPT/HCPCS: 36415; 82728; 83540; 83550; 85025

== ENCOUNTER → 2023-09-02 | Outpatient (CLI) | payer MEDICARE, OTHER | END | disposition home or self-care (01) | LOC: LABWHC1 12:54 | PROVIDERS: ATTEND Psychiatry & Neurology Neurology | DX: G71.12 Myotonia congenita (principal) | CPT/HCPCS: 36415; 82550 ==

== ENCOUNTER → 2024-01-20 | Outpatient (CLI) | payer MEDICARE, OTHER ==
[2024-01-20 16:09] LABS: ALT 73 U/L (10-49); AST 59 U/L (14-35); Albumin 4.4 g/dL (3.8-4.9); Albumin/Globulin Ratio 1.38 Ratio (1.60-3.17); Alkaline Phosphatase 79 U/L (41-126); BUN/Creat Ratio 9.36 Ratio (12.00-20.00); Blood Urea Nitrogen 10.3 mg/dL (9.0-27.0); Calcium 9.6 mg/dL (8.7-10.3); Carbon Dioxide 26.3 mmol/L (21.6-31.8); Chloride 99 mmol/L (96-109); Globulin 3.2 g/dL (1.6-3.3); Glucose 104 mg/dL (70-110); LDL Cholesterol,Calculated 121.4 mg/dL (0.0-131.0); Potassium 3.8 mmol/L (3.5-5.5); Sodium 140 mmol/L (135-145); T4, Free (Free Thyroxine) 1.44 ng/dL (0.80-1.80); Total Bilirubin 0.6 mg/dL (0.3-1.2); Total Protein 7.6 g/dL (6.2-8.2)
[2024-01-20 17:04] LABS: Basophils # (A) 0.06 X 10*3/uL (0.00-0.10); Basophils % (A) 0.9 %; Eosinophils # (A) 0.28 X 10*3/uL (0.04-0.35); Eosinophils % (A) 4.2 %; HCT 49.6 % (39.6-50.0); HGB 17.6 g/dL (13.0-17.0); Lymphocytes # (A) 1.86 X 10*3/uL (0.90-5.00); Lymphocytes % (A) 27.8 %; MCH 29.9 pg (27.0-32.0); MCHC 35.5 g/dL (32.0-37.0); MCV 84.2 FL (80.0-97.0); Mean Platelet Volume 10.1 FL (9.5-12.2); Monocytes # (A) 0.48 X 10*3/uL (0.20-1.00); Monocytes % (A) 7.2 %; NRBC Per 100 WBC 0 X 10*3/uL (0.00-0.01); Neutrophils # (A) 4.01 X 10*3/uL (1.80-7.70); Neutrophils % (A) 59.8 %; Platelet Count 290 X 10*3/uL (140-440); RBC 5.89 X 10*6/uL (4.40-5.60); RDW 12.6 % (11.5-14.5)
== END | disposition home or self-care (01) ==
LOC: LABWHC1 11:17
PROVIDERS: ATTEND Family Medicine
DX: Z00.00 Encounter for general adult medical examination without abnormal findings (principal)
CPT/HCPCS: 36415; 80053; 80061; 84439; 84443; 85025

== ENCOUNTER → 2025-03-09 | Outpatient (CLI) | payer MEDICARE, OTHER ==
[2025-03-09 15:13] LABS: Basophils # (A) 0.06 X 10*3/uL (0.00-0.10); Basophils % (A) 0.8 %; Eosinophils # (A) 0.44 X 10*3/uL (0.04-0.35); Eosinophils % (A) 5.9 %; HCT 50.4 % (39.6-50.0); HGB 17.6 g/dL (13.0-17.0); Lymphocytes # (A) 2.06 X 10*3/uL (0.90-5.00); Lymphocytes % (A) 27.5 %; MCH 29.7 pg (27.0-32.0); MCHC 34.9 g/dL (32.0-37.0); Mean Platelet Volume 9.9 FL (9.5-12.2); Monocytes % (A) 6.7 %; NRBC Per 100 WBC 0 X 10*3/uL (0.00-0.01); Neutrophils # (A) 4.41 X 10*3/uL (1.80-7.70); Platelet Count 269 X 10*3/uL (140-440); RBC 5.93 X 10*6/uL (4.40-5.60); RDW 12.6 % (11.5-14.5); WBC 7.48 X 10*3/uL (4.50-10.00)
[2025-03-09 15:38] LABS: ALT 73 U/L (10-49); AST 53 U/L (14-35); Albumin 4.2 g/dL (3.8-4.9); Albumin/Globulin Ratio 1.35 Ratio (1.60-3.17); Alkaline Phosphatase 95 U/L (41-126); BUN/Creat Ratio 8.64 Ratio (12.00-20.00); Blood Urea Nitrogen 9.5 mg/dL (9.0-27.0); Calcium 9.1 mg/dL (8.7-10.3); Carbon Dioxide 23.3 mmol/L (21.6-31.8); Chloride 105 mmol/L (96-109); Chol/HDL Ratio 2.83 Ratio; Globulin 3.1 g/dL (1.6-3.3); Glucose 101 mg/dL (70-110); LDL Cholesterol,Calculated 61.8 mg/dL (0.0-131.0); Potassium 4.9 mmol/L (3.5-5.5); Sodium 141 mmol/L (135-145); Total Bilirubin 0.5 mg/dL (0.3-1.2); Total Protein 7.3 g/dL (6.2-8.2)
== END | disposition home or self-care (01) ==
LOC: LABWHC1 11:57
PROVIDERS: ATTEND Family Medicine
DX: Z00.00 Encounter for general adult medical examination without abnormal findings (principal)
CPT/HCPCS: 36415; 80053; 80061; 84443; 85025